=== PATIENT | female | born 1955 | race Caucasian/White ===

== ENCOUNTER 2020-05-18 12:55 | Outpatient (REF) | payer MEDICAID, SELFPAY ==
--- NOTE | 2020-05-18 13:04 | XR_ITS ---
EXAMINATION: XR KNEE, LEFT XR KNEE, BILATERAL CLINICAL INFORMATION: Left knee pain COMPARISON: None TECHNIQUE: AP standing view of both knees. 2 views of the left knee. FINDINGS: Left knee: No fracture or subluxation. Compartmental joint space narrowing at the patellofemoral compartment. Medial and lateral compartments are maintained. Tricompartmental marginal osteophytes are present. No joint effusion. The soft tissues are unremarkable. Right knee: No fracture or malalignment on this single view. Mild medial compartment joint space narrowing with marginal osteophytes of the medial and lateral compartments. IMPRESSION: Mild tricompartmental degenerative changes of the left knee, greatest at the patellofemoral compartment.
== END 2020-05-18 12:56 | disposition home or self-care (01) ==
LOC: HO.XRAY 12:55
PROVIDERS: PCP Nurse Practitioner Family; Referring Provider Nurse Practitioner Family; Visit Provider Orthopaedic Surgery
DX: M25.562 Pain in left knee (principal); M17.12 Unilateral primary osteoarthritis, left knee
CPT/HCPCS: 20610; 73560; 73565; 99214; J1100

== ENCOUNTER 2020-09-07 13:39 | Outpatient (REF) | payer MEDICAID, SELFPAY | END 2020-09-07 13:40 | disposition home or self-care (01) | LOC: HO.LAB 13:39 | PROVIDERS: Visit Provider Internal Medicine | DX: Z20.822 Contact with and (suspected) exposure to COVID-19 (principal) | CPT/HCPCS: 36415; C9803; U0003; U0005 ==

== ENCOUNTER 2020-09-26 15:14 | Outpatient (REF) | payer MEDICAID, SELFPAY | END 2020-09-26 15:15 | disposition home or self-care (01) | LOC: HO.LAB 15:14 | PROVIDERS: PCP Nurse Practitioner Family; Visit Provider Internal Medicine | DX: Z20.822 Contact with and (suspected) exposure to COVID-19 (principal) | CPT/HCPCS: 36415; C9803; U0003; U0005 ==

== ENCOUNTER 2021-01-23 09:24 | Outpatient (REF) | payer MEDICAID, SELFPAY ==
--- NOTE | ~2021-01-23 | CT_ITS ---
EXAMINATION: CT INTERNAL AUDITORY CANALS WITH CONTRAST CLINICAL INFORMATION: Left mastoid tenderness. Hard mass. COMPARISON: None available. TECHNIQUE: Contiguous axial imaging was performed from the skull base to vertex following the administration of 85 mL of Omnipaque [address] examination was performed using dose optimization techniques as appropriate, variously including the following: *Automated exposure control *Adjustment of mA and/or kV according to patient size (this includes techniques or standardized protocols for targeted exams where dose is matched to indication/reason for exam; i.e. extremities or head) *Use of iterative reconstruction technique Total DLP: 252 mGy-cm FINDINGS: There is arachnoid pitting within the greater sphenoid wings bilaterally, there is an intradiploic meningocele within the left sphenoid wing, there is an empty sella, and there are petrous apex cephaloceles bilaterally. These findings can be seen and should be correlated for clinical signs of pseudotumor cerebri/intracranial hypertension. Nonspecific periauricular lymph nodes bilaterally and left greater than right occipital chain lymph nodes. No discrete mass lesions nor focal fluid collections identified. Mastoid air cells and middle ear cavities remain well aerated. Imaged paranasal sinuses are clear. There is sigmoid deviation of the nasal septum. There is dural calcification intracranially. There are hypertrophic degenerative changes at the atlantodental interval. Birgit bullosa within the right middle turbinate. CT/CT internal auditory canals BI IMPRESSION: - There is arachnoid pitting within the greater sphenoid wings bilaterally, there is an intradiploic meningocele within the left sphenoid wing, there is an empty sella, and there are petrous apex cephaloceles bilaterally. These findings can be seen in and should be correlated for clinical signs of pseudotumor cerebri/intracranial hypertension. - Nonspecific periauricular lymph nodes bilaterally and left greater than right occipital chain lymph nodes. - No discrete mass lesions nor focal fluid collections identified.
[2021-01-23] MEDS: iohexoL 350 MG/ML 100 ML INFUS..BTL IV (12:11)
== END 2021-01-23 09:25 | disposition home or self-care (01) ==
LOC: HO.CT 09:24
PROVIDERS: PCP Nurse Practitioner Primary Care; Visit Provider Emergency Medicine
DX: H92.02 Otalgia, left ear (principal)
CPT/HCPCS: 70480; Q9967

== ENCOUNTER 2021-02-07 16:24 | Outpatient (REF) | payer MEDICAID, SELFPAY ==
--- NOTE | ~2021-02-07 | XR_ITS ---
EXAMINATION: XR SKULL CLINICAL INFORMATION: Hyperostosis of the skull. COMPARISON: CT of the internal auditory canal 01/23/2021. TECHNIQUE: 5 views of the skull FINDINGS: There is diffuse cortical thickening and sclerosis of the skull. A focal lesion is not seen. Differential would include Paget's disease, fibrous dysplasia, anemia, hypothyroidism, hyperparathyroidism, and metabolic bone disease such as hypercalcemia and fluorosis and certain medications such as Dilantin. No fracture, dislocation or focal bone lesion is seen. Visualized paranasal sinuses appear clear. XR/XR skull min 4V IMPRESSION: Diffuse skull thickening. Differential would include Paget's disease, fibrous dysplasia, anemia, hypothyroidism, hyperparathyroidism, metabolic bone disease, and certain medications.
== END 2021-02-07 16:25 | disposition home or self-care (01) ==
LOC: HO.XRAY 16:24
PROVIDERS: PCP Nurse Practitioner Family; Visit Provider Internal Medicine
DX: M85.2 Hyperostosis of skull (principal)
CPT/HCPCS: 70260

== ENCOUNTER 2021-02-16 14:36 | Outpatient (REF) | payer MEDICAID, SELFPAY | END 2021-02-16 14:37 | disposition home or self-care (01) | LOC: HO.LAB 14:36 | PROVIDERS: PCP Nurse Practitioner Family; Visit Provider Internal Medicine | DX: Z20.822 Contact with and (suspected) exposure to COVID-19 (principal) | CPT/HCPCS: C9803; U0003; U0005 ==

== ENCOUNTER 2021-02-19 08:16 | Outpatient (REF) | payer MEDICAID, SELFPAY ==
--- NOTE | ~2021-02-19 | CT_ITS ---
EXAMINATION: CT HEAD WITH CONTRAST CLINICAL INFORMATION: Headaches. Photophobia. COMPARISON: No relevant prior imaging. TECHNIQUE: Contiguous axial imaging was performed from the skull base to vertex following the administration of 100 mL of Omnipaque [address] examination was performed using dose optimization techniques as appropriate, variously including the following: *Automated exposure control *Adjustment of mA and/or kV according to patient size (this includes techniques or standardized protocols for targeted exams where dose is matched to indication/reason for exam; i.e. extremities or head) *Use of iterative reconstruction technique DLP: 1041 mGy-cm FINDINGS: There is no abnormal mass or enhancement within the intracranial compartment. No intracranial mass effect or midline shift. Lateral and third ventricles are normal. No hydrocephalus. There is an enlarged partially empty sella turcica. Extensive dural calcifications. Sotelo-white matter differentiation is grossly preserved and there is no evidence of acute territorial infarct. The calvarium and skull base are intact. Mastoid air cells and middle ear cavities are well aerated. No active paranasal sinus disease. CT/CT head/brain w con IMPRESSION: There is an enlarged partially empty sella turcica and extensive dural calcifications. Otherwise unremarkable CT scan of the head. No abnormal intracranial mass or enhancement.
[2021-02-19] MEDS: iohexoL 350 MG/ML 100 ML INFUS..BTL IV (10:00)
== END 2021-02-19 08:17 | disposition home or self-care (01) ==
LOC: HO.CT 08:16
PROVIDERS: PCP Nurse Practitioner Family; Visit Provider Internal Medicine
DX: Q75.9 Congenital malformation of skull and face bones, unspecified (principal)
CPT/HCPCS: 70460; Q9967

== ENCOUNTER 2021-05-09 10:05 | Outpatient (REF) | payer MEDICAID, SELFPAY ==
--- NOTE | ~2021-05-09 | US_ITS ---
EXAMINATION: US THYROID CLINICAL INFORMATION: History of thyroidectomy. COMPARISON: None TECHNIQUE: Linear transducer grayscale and color Doppler examination with attention to the region of the thyroid. FINDINGS: SIZE: Measurements of the thyroid lobes and nodules are given in sagittal, anteroposterior and transverse dimensions respectively. Right Thyroid Lobe: Surgically absent. Left Thyroid Lobe: Surgically absent. Isthmus: Surgically absent. No abnormal mass or fluid collection is seen within the former thyroid bed. NODES: In the right upper cervical region, a 2.1 x 0.6 x 1.4 cm reniform lymph node is seen showing good corticomedullary differentiation, no focal cortical thickening and a vascular hilum. In the mid right cervical region, 1.0 x 1 0.4 x 0.7 cm and 1.0 x 0.5 x 0.6 cm lymph nodes are seen showing good corticomedullary differentiation, no focal cortical thickening and a vascular zena. At the superior left cervical region, a 1.1 x 0.4 x 0.4 cm reniform lymph node is seen. At the mid left cervical region, a 1.2 x 0.6 x 0.5 cm lymph node is seen. These lymph nodes showed good corticomedullary differentiation, no focal cortical thickening and a vascular hilum. US/US thyroid IMPRESSION: 1. The thyroid is surgically absent. No abnormal mass or fluid collection is seen within the former thyroid bed. 2. Bilateral cervical lymph nodes are seen, the majority shotty and nonpathologically enlarged and 1 within the superior right cervical region enlarged, without focal cortical thickening and showing well-maintained corticomedullary differentiation. This is a nonspecific finding, which should be managed on a clinical basis. If clinically indicated, consider further evaluation with follow-up ultrasound imaging in 3-6 months to ensure stability/regression. ACR TI-RADS RECOMMENDATION REFERENCE: Ultrasound-guided fine-needle aspiration, followup ultrasound, no further follow up. * TR1 (0 point) and TR 2 (2 points): No FNA or follow up * TR3 (3 points): FNA if more than or equal to 2.5 cm in maximum dimension, followup ultrasound in 1, 3 and 5 years if 1.5 to 2.4 cm in maximum dimension. * TR4 (4-6 points): FNA if more than or equal to 1.5 cm in maximum dimension, followup ultrasound in 1, 2, 3 and 5 years if 1 to 1.4 cm in maximum dimension. * TR5 (more than or equal to 7 points): FNA if more than or equal to 1 cm in maximum dimension, followup ultrasound every year for 5 years if 0.5 to 0.9 cm in maximum dimension. * TR3, TR4 or TR5 nodules that are below the size threshold for follow up receive no follow up.
== END 2021-05-09 10:06 | disposition home or self-care (01) ==
LOC: HO.US 10:05
PROVIDERS: PCP Nurse Practitioner Primary Care; Visit Provider Nurse Practitioner Primary Care
DX: E89.0 Postprocedural hypothyroidism (principal); Z85.850 Personal history of malignant neoplasm of thyroid
CPT/HCPCS: 76536

== ENCOUNTER → 2021-06-08 14:08 | Outpatient (BNVA) | payer MEDICAID, SELFPAY | PROVIDERS: PCP Nurse Practitioner Primary Care; Referring Provider Nurse Practitioner Primary Care; Visit Provider Nurse Practitioner | DX: Z01.818 Encounter for other preprocedural examination (principal); K62.5 Hemorrhage of anus and rectum | CPT/HCPCS: 99202 ==

== ENCOUNTER 2021-06-11 13:18 | Outpatient (REF) | payer MEDICAID, SELFPAY ==
[2021-06-11 13:29] LABS: MANUAL DIFF FLAG NO
[2021-06-11 14:43] LABS: Basophils Absolute Auto 0.1 X10*3/uL (0.0-0.2); Basophils Percent Auto 0.4 % (0-2); Eosinophils Absolute Auto 0.2 X10*3/uL (0.0-0.4); Eosinophils Percent Auto 1.3 % (0-4); Hematocrit 43.4 % (37.0-47.0); Hemoglobin 14.2 g/dl (12.0-16.0); Imm Gran Abs Auto 0.06 X10*3/uL (0.00-0.03); Imm Gran Pct Auto 0.4 % (0.0-0.4); Lymphocytes Absolute Auto 4.3 X10*3/uL (1.2-4.9); Lymphocytes Percent Auto 28.2 % (20-40); Mean Corpuscular HGB Conc 32.7 g/dl (31.0-35.0); Mean Corpuscular Hemoglobin 31.5 pg (27.0-33.0); Mean Corpuscular Volume 96.2 fL (80.0-98.0); Mean Platelet Volume 10.6 fL (9.4-12.3); Monocytes Absolute Auto 0.9 X10*3/uL (0.1-1.2); Neutrophils Absolute Auto 9.6 x10*3/uL (2.0-8.3); Neutrophils Percent Auto 63.7 % (45-73); Platelet Count 369 X10*3/uL (160-400); Red Blood Count 4.51 X10*6/uL (4.20-5.50); Red Cell Distribution Width 13.6 % (11.0-16.0); White Blood Count 15.1 X10*3/uL (4.8-10.8)
[2021-06-11 15:10] LABS: Alanine Aminotransferase 13 U/L (0-31); Albumin Level 4.1 g/dL (3.5-5.0); Alkaline Phosphatase 77 U/L (39-117); Anion Gap 15 (12-20); Aspartate Amino Transferase 11 U/L (5-31); Bilirubin Total 0.3 mg/dL (0.0-1.0); Blood Urea Nitrogen 15 mg/dL (9-16); Calcium 9.3 mg/dL (8.4-10.2); Carbon Dioxide 25 mmol/L (22-29); Chloride 105 mmol/L (96-108); Estimated Glomerular Filt Rate > 60; Glucose Random 163 mg/dL (60-115); Potassium 4.5 mmol/L (3.3-5.1); Sodium 140 mmol/L (135-145); Total Protein 6.8 g/dL (6.5-8.0)
== END 2021-06-11 13:19 | disposition home or self-care (01) ==
LOC: HO.LAB 13:18
PROVIDERS: PCP Nurse Practitioner Primary Care; Visit Provider Nurse Practitioner
DX: K62.5 Hemorrhage of anus and rectum (principal)
CPT/HCPCS: 36415; 80053; 85025

== ENCOUNTER 2021-07-23 14:11 | Outpatient (REF) | payer MEDICAID, SELFPAY | END 2021-07-23 14:12 | disposition home or self-care (01) | LOC: HO.LAB 14:11 | PROVIDERS: Visit Provider Internal Medicine | DX: Z20.822 Contact with and (suspected) exposure to COVID-19 (principal) | CPT/HCPCS: C9803; U0003; U0005 ==

== ENCOUNTER 2021-09-05 12:31 | Day surgery (SDC) | payer MEDICAID, SELFPAY ==
[2021-08-31 10:04] VITALS: BMI 40.2
--- NOTE | 2021-09-04 11:51 | P.CONAN_ITS ---
Documented by User: Kaitlin Burris NP 09/04/21 11:52 HPI - Anesthesia Eval Consult details Narrative: 65yo F for Colonoscopy PMFSH Active Problems Active Problems: All Active Problems (Updated 08/31/21 @ 09:59 by Palak Moreira, RICARDO) Skull anomaly (Acute) Rectal bleeding (Acute) Osteoarthritis of left knee (Acute) Left knee pain (Acute) Past Medical History Medical History Anxiety and depression Elevated cholesterol GERD (gastroesophageal reflux disease) Hx of thyroid cancer Hypertension Left knee pain [place] on CPAP Osteoarthritis of left knee Prediabetes Family History Family History Mother Leukemia Diabetes Heart attack Father Esophageal adenocarcinoma Sister Breast cancer Brother Bone cancer Esophageal adenocarcinoma Family/Other Ovarian cancer Brother Prostate cancer Paternal Grandmother Melanoma Surgical History Surgical History History of back surgery History of colonoscopy History of endoscopy History of thyroidectomy Social History Social History Alcohol intake: current Alcohol intake frequency: holidays/special occasions only Patient Tobacco Use Status: Never used Tobacco Advance Directives: No Advance Directives Information Provided: Yes Meds Allergies Allergy/AdvReac Type Severity Reaction Status Date / Time No Known Allergies Allergy Mild NONE Verified 08/31/21 09:59 Home Medications Medication Instructions Recorded Confirmed Last Taken Type amlodipine 5 mg 5 mg PO DAILY 05/18/20 08/31/21 Unknown History tablet atorvastatin 20 40 mg PO DAILY 05/18/20 08/31/21 Unknown History mg tablet bupropion HCl 150 150 mg PO QAM 05/18/20 08/31/21 Unknown History mg 24 hr tablet, extended release cholecalciferol 50 mcg PO DAILY 05/18/20 08/31/21 Unknown History (vitamin D3) 50 mcg (2,000 unit) chewable tablet citalopram 10 mg 10 mg PO DAILY 05/18/20 08/31/21 Unknown History tablet (Celexa) docusate sodium 100 mg PO DAILY 05/18/20 08/31/21 Unknown History 100 mg capsule levothyroxine 137 137 mcg PO DAILY 05/18/20 08/31/21 Unknown History mcg tablet lisinopril 20 mg 20 mg PO DAILY 05/18/20 08/31/21 Unknown History tablet lorazepam 1 mg 1 mg PO DAILY 05/18/20 08/31/21 Unknown History tablet PRN sennosides 8.6 mg 8.6 mg PO DAILY 05/18/20 08/31/21 Unknown History tablet (Senna Lax) tizanidine 4 mg 4 mg PO BEDTIME 05/18/20 08/31/21 Unknown History capsule (Zanaflex) trazodone 100 mg 100 mg PO BID 05/18/20 08/31/21 Unknown History tablet metformin 500 mg 2 tab PO BID 02/07/21 08/31/21 Unknown History tablet,extended release 24 hr tramadol 50 mg 1 tab PO Q8H PRN 02/07/21 08/31/21 Unknown History tablet omeprazole 20 mg 1 tab PO QAM 08/31/21 08/31/21 Unknown History capsule,delayed release prazosin 1 mg 1 cap PO BEDTIME 08/31/21 08/31/21 Unknown History capsule Exam Exam Date and Time: September 04, 2021 1151 Height,Weight and Vital Signs: Height 5 ft 5 in Weight 109.769 kg Pertinent Lab Results Pertinent Lab Results: Laboratory Tests 06/11/21 06/11/21 13:27 13:27 WBC 15.1 H Hgb 14.2 Hct 43.4 Plt Count 369 Sodium 140 Potassium 4.5 Chloride 105 Carbon Dioxide 25 BUN 15 Creatinine 0.93 Assessment and Plan Assessment Anesthesia Assessment: Chart Reviewed Documented by User: Kyra Owen MD 09/05/21 12:58 [facility] Past Medical History Medical History Anxiety and depression Elevated cholesterol GERD (gastroesophageal reflux disease) Hx of thyroid cancer Hypertension Left knee pain [place] on CPAP Osteoarthritis of left knee Prediabetes Family History Family History Mother Leukemia Diabetes Heart attack Father Esophageal adenocarcinoma Sister Breast cancer Brother Bone cancer Esophageal adenocarcinoma Family/Other Ovarian cancer Brother Prostate cancer Paternal Grandmother Melanoma Surgical History Surgical History History of back surgery History of colonoscopy History of endoscopy History of thyroidectomy History of Problems with Anesthesia: No Social History Social History Alcohol intake: current Alcohol intake frequency: holidays/special occasions only Patient Tobacco Use Status: Never used Tobacco Advance Directives: No Advance Directives Information Provided: Yes Meds Allergies Allergy/AdvReac Type Severity Reaction Status Date / Time No Known Allergies Allergy Mild NONE Verified 08/31/21 09:59 Home Medications Medication Instructions Recorded Confirmed Last Taken Type amlodipine 5 mg 5 mg PO DAILY 05/18/20 08/31/21 Unknown History tablet atorvastatin 20 40 mg PO DAILY 05/18/20 08/31/21 Unknown History mg tablet bupropion HCl 150 150 mg PO QAM 05/18/20 08/31/21 Unknown History mg 24 hr tablet, extended release cholecalciferol 50 mcg PO DAILY 05/18/20 08/31/21 Unknown History (vitamin D3) 50 mcg (2,000 unit) chewable tablet citalopram 10 mg 10 mg PO DAILY 05/18/20 08/31/21 Unknown History tablet (Celexa) docusate sodium 100 mg PO DAILY 05/18/20 08/31/21 Unknown History 100 mg capsule levothyroxine 137 137 mcg PO DAILY 05/18/20 08/31/21 Unknown History mcg tablet lisinopril 20 mg 20 mg PO DAILY 05/18/20 08/31/21 Unknown History tablet lorazepam 1 mg 1 mg PO DAILY 05/18/20 08/31/21 Unknown History tablet PRN sennosides 8.6 mg 8.6 mg PO DAILY 05/18/20 08/31/21 Unknown History tablet (Senna Lax) tizanidine 4 mg 4 mg PO BEDTIME 05/18/20 08/31/21 Unknown History capsule (Zanaflex) trazodone 100 mg 100 mg PO BID 05/18/20 08/31/21 Unknown History tablet metformin 500 mg 2 tab PO BID 02/07/21 08/31/21 Unknown History tablet,extended release 24 hr tramadol 50 mg 1 tab PO Q8H PRN 02/07/21 08/31/21 Unknown History tablet omeprazole 20 mg 1 tab PO QAM 08/31/21 08/31/21 Unknown History capsule,delayed release prazosin 1 mg 1 cap PO BEDTIME 08/31/21 08/31/21 Unknown History capsule Exam Airway Mallampati Class: II TM Dist: >3cm Neck ROM: Full Loose/Missing/Broken Teeth: No Heart: RRR Lungs: CTA Assessment and Plan Assessment Anesthesia Assessment: Anesthesia Plan Discussed Final Anesthetic Review History of Problems with Anesthesia: No NPO: Yes ASA Class: III Final Preanesthetic Review: Meds/Allgs Chart Reviewed, Consent Obtained/Reviewed and Anes Risks/Benef Reviewed Patient Risk: Intermediate Procedure Risk: Low Anesthetic Plan Anesthetic Plan: MAC: Disposition: Standard PACU
--- NOTE | 2021-09-04 11:51 | HO.ANESPROP2 ---
Documented by User: Kaitlin Burris NP 09/04/21 11:52 HPI - Anesthesia Eval Consult details Narrative: 65yo F for Colonoscopy PMFSH Active Problems Active Problems: All Active Problems (Updated 08/31/21 @ 09:59 by Palak Moreira, RICARDO) Skull anomaly (Acute) Rectal bleeding (Acute) Osteoarthritis of left knee (Acute) Left knee pain (Acute) Past Medical History Medical History Anxiety and depression Elevated cholesterol GERD (gastroesophageal reflux disease) Hx of thyroid cancer Hypertension Left knee pain [place] on CPAP Osteoarthritis of left knee Prediabetes Family History Family History Mother Leukemia Diabetes Heart attack Father Esophageal adenocarcinoma Sister Breast cancer Brother Bone cancer Esophageal adenocarcinoma Family/Other Ovarian cancer Brother Prostate cancer Paternal Grandmother Melanoma Surgical History Surgical History History of back surgery History of colonoscopy History of endoscopy History of thyroidectomy Social History Social History Alcohol intake: current Alcohol intake frequency: holidays/special occasions only Patient Tobacco Use Status: Never used Tobacco Advance Directives: No Advance Directives Information Provided: Yes Meds Allergies Allergy/AdvReac Type Severity Reaction Status Date / Time No Known Allergies Allergy Mild NONE Verified 08/31/21 09:59 Home Medications Medication Instructions Recorded Confirmed Last Taken Type amlodipine 5 mg tablet 5 mg PO DAILY 05/18/20 08/31/21 Unknown History atorvastatin 20 mg tablet 40 mg PO DAILY 05/18/20 08/31/21 Unknown History bupropion HCl 150 mg 24 hr tablet, 150 mg PO QAM 05/18/20 08/31/21 Unknown History extended release cholecalciferol (vitamin D3) 50 50 mcg PO DAILY 05/18/20 08/31/21 Unknown History mcg (2,000 unit) chewable tablet citalopram 10 mg tablet (Celexa) 10 mg PO DAILY 05/18/20 08/31/21 Unknown History docusate sodium 100 mg capsule 100 mg PO DAILY 05/18/20 08/31/21 Unknown History levothyroxine 137 mcg tablet 137 mcg PO DAILY 05/18/20 08/31/21 Unknown History lisinopril 20 mg tablet 20 mg PO DAILY 05/18/20 08/31/21 Unknown History lorazepam 1 mg tablet 1 mg PO DAILY PRN 05/18/20 08/31/21 Unknown History sennosides 8.6 mg tablet (Senna 8.6 mg PO DAILY 05/18/20 08/31/21 Unknown History Lax) tizanidine 4 mg capsule (Zanaflex) 4 mg PO BEDTIME 05/18/20 08/31/21 Unknown History trazodone 100 mg tablet 100 mg PO BID 05/18/20 08/31/21 Unknown History metformin 500 mg tablet,extended 2 tab PO BID 02/07/21 08/31/21 Unknown History release 24 hr tramadol 50 mg tablet 1 tab PO Q8H PRN 02/07/21 08/31/21 Unknown History omeprazole 20 mg capsule,delayed 1 tab PO QAM 08/31/21 08/31/21 Unknown History release prazosin 1 mg capsule 1 cap PO BEDTIME 08/31/21 08/31/21 Unknown History Exam Exam Date and Time: September 04, 2021 1151 Height,Weight and Vital Signs: Height 5 ft 5 in Weight 109.769 kg Pertinent Lab Results Pertinent Lab Results: Laboratory Tests 06/11/21 06/11/21 13:27 13:27 WBC 15.1 H Hgb 14.2 Hct 43.4 Plt Count 369 Sodium 140 Potassium 4.5 Chloride 105 Carbon Dioxide 25 BUN 15 Creatinine 0.93 Assessment and Plan Assessment Anesthesia Assessment: Chart Reviewed Documented by User: Kyra Owen MD 09/05/21 12:58 [facility] Past Medical History Medical History Anxiety and depression Elevated cholesterol GERD (gastroesophageal reflux disease) Hx of thyroid cancer Hypertension Left knee pain [place] on CPAP Osteoarthritis of left knee Prediabetes Family History Family History Mother Leukemia Diabetes Heart attack Father Esophageal adenocarcinoma Sister Breast cancer Brother Bone cancer Esophageal adenocarcinoma Family/Other Ovarian cancer Brother Prostate cancer Paternal Grandmother Melanoma Surgical History Surgical History History of back surgery History of colonoscopy History of endoscopy History of thyroidectomy History of Problems with Anesthesia: No Social History Social History Alcohol intake: current Alcohol intake frequency: holidays/special occasions only Patient Tobacco Use Status: Never used Tobacco Advance Directives: No Advance Directives Information Provided: Yes Meds Allergies Allergy/AdvReac Type Severity Reaction Status Date / Time No Known Allergies Allergy Mild NONE Verified 08/31/21 09:59 Home Medications Medication Instructions Recorded Confirmed Last Taken Type amlodipine 5 mg tablet 5 mg PO DAILY 05/18/20 08/31/21 Unknown History atorvastatin 20 mg tablet 40 mg PO DAILY 05/18/20 08/31/21 Unknown History bupropion HCl 150 mg 24 hr tablet, 150 mg PO QAM 05/18/20 08/31/21 Unknown History extended release cholecalciferol (vitamin D3) 50 50 mcg PO DAILY 05/18/20 08/31/21 Unknown History mcg (2,000 unit) chewable tablet citalopram 10 mg tablet (Celexa) 10 mg PO DAILY 05/18/20 08/31/21 Unknown History docusate sodium 100 mg capsule 100 mg PO DAILY 05/18/20 08/31/21 Unknown History levothyroxine 137 mcg tablet 137 mcg PO DAILY 05/18/20 08/31/21 Unknown History lisinopril 20 mg tablet 20 mg PO DAILY 05/18/20 08/31/21 Unknown History lorazepam 1 mg tablet 1 mg PO DAILY PRN 05/18/20 08/31/21 Unknown History sennosides 8.6 mg tablet (Senna 8.6 mg PO DAILY 05/18/20 08/31/21 Unknown History Lax) tizanidine 4 mg capsule (Zanaflex) 4 mg PO BEDTIME 05/18/20 08/31/21 Unknown History trazodone 100 mg tablet 100 mg PO BID 05/18/20 08/31/21 Unknown History metformin 500 mg tablet,extended 2 tab PO BID 02/07/21 08/31/21 Unknown History release 24 hr tramadol 50 mg tablet 1 tab PO Q8H PRN 02/07/21 08/31/21 Unknown History omeprazole 20 mg capsule,delayed 1 tab PO QAM 08/31/21 08/31/21 Unknown History release prazosin 1 mg capsule 1 cap PO BEDTIME 08/31/21 08/31/21 Unknown History Exam Airway Mallampati Class: II TM Dist: >3cm Neck ROM: Full Loose/Missing/Broken Teeth: No Heart: RRR Lungs: CTA Assessment and Plan Assessment Anesthesia Assessment: Anesthesia Plan Discussed Final Anesthetic Review History of Problems with Anesthesia: No NPO: Yes ASA Class: III Final Preanesthetic Review: Meds/Allgs Chart Reviewed, Consent Obtained/Reviewed and Anes Risks/Benef Reviewed Patient Risk: Intermediate Procedure Risk: Low Anesthetic Plan Anesthetic Plan: MAC: Disposition: Standard PACU
--- NOTE | 2021-09-05 12:47 | MHC.SHP ---
Pre-Procedural Eval Section A Date of Service: 09/05/21 Section B Chief Complaint: rectal bleeding Relevant Family History (Specify if Yes): No Relevant Social History: None Present Medications: see Short Stay Collaborative assessment Medical History: Significant History (Anxiety and depression Elevated cholesterol GERD (gastroesophageal reflux disease) Hx of thyroid cancer Hypertension Left knee pain [place] on CPAP Osteoarthritis of left knee Prediabetes) History of Previous Operations: Relevant previous surgery/procedure and date(s) (History of back surgery History of colonoscopy History of endoscopy History of thyroidectomy) Allergies: Allergies Allergy/AdvReac Type Severity Reaction Status Date / Time No Known Allergies Allergy Mild NONE Verified 08/31/21 09:59 Review of Systems Sugical H&P ROS: Negative: Constitution, Cardiovascular, Respiratory, Neurological, Psychiatric, Hem-Onc, Allergic/Immunologic, Gastrointestinal, Genitourinary, Musculoskeletal, Integumentary, Endocrine and Eyes/Ears/Nose/Throat Exam Surgical H&P Exam: Normal: HEENT, Normal: Heart, Normal: Lungs, Normal: Extremities, Normal: Abdomen, Normal: Skin and Normal: Neurological Plan Diagnosis/Plan: Unchanged I have reviewed the history and physical and performed a pertinent physical examination on my patient. No changes have occurred unless specified.
[2021-09-05 12:57] VITALS: BMI 40.7
[2021-09-05 13:11] VITALS: BP 154/90; PULSE 90; RESP 18; TEMP 36.2; O2SAT 98
[2021-09-05] MEDS: Lactated Ringers 1,000 ML 100 ML IVCONT (13:30)
[2021-09-05 13:43] LABS: Glucose, Whole Blood 123 mg/dL (60-115)
--- NOTE | 2021-09-05 13:45 | PM.OP ---
Brief Operative Note Date of Service: 09/05/21 Pre-op diagnosis: rectal bleeding Post-op diagnosis: same Procedure: see op note Surgeon: Arthur Alexander MD Anesthesia: MAC Was an Admitting Clerk used for this Procedure?: No Estimated blood loss (mL): 0 Condition: stable Disposition: PACU
--- NOTE | 2021-09-05 13:45 | W.PM.OPN ---
Operative Note Operative Note Date of Service: 09/05/21 Narrative: Operative Information Procedure Description: Colonoscopy COLONOSCOPY Instrument: Olympus variable stiffness adult scope 190L Colonoscopy Monitoring: Vital signs and clinical assessment, continuous EKG monitoring, Pulse oximetry, Carbon Dioxide monitoring and blood pressure monitoring were done throughout the procedure. Colon withdrawal time was 21 minutes. Procedure: The patient was placed in the left lateral decubitis position and pre-procedure medications were administered. After a digital rectal examination of the ano-rectum, the video colonoscope was inserted into the rectum and advanced through the colon to the cecum/TI. The colonoscope was slowly withdrawn in a retrograde panoramic fashion and the colon mucosa was carefully examined including a retroflexed view of the rectum. Findings and interventions are described below. Procedure Difficulty:moderate, pressure applied due to looping Findings: Terminal Ileum-normal Cecum: x 2 sessile polyps 5-6 mm removed with forceps Ascending Colon: normal Transverse Colon - x 2 sessile polyps, one measured 8 mm and the other-12-13 mm removed with cold snare Descending Colon:normal Sigmoid Colon: moderate diverticulosis Rectum: Retroflexion with small to medium sized internal hemorrhoids, grade I Anorectum - normal Colon preparation: [place] Bowel Preparation Scale Right colon; 1 Transverse colon: 1 Left colon; 2 (0 = Unprepared colon segment with mucosa not seen due to solid stool that cannot be cleared. 1 = Portion of mucosa of the colon segment seen, but other areas of the colon segment not well seen due to staining, residual stool and/or opaque liquid. 2 = Minor amount of residual staining, small fragments of stool and/or opaque liquid, but mucosa of colon segment seen well. 3 = Entire mucosa of colon segment seen well with no residual staining, small fragments of stool or opaque liquid) Impression and Post Procedure Diagnosis: polyps internal hemorrhoids diverticular disease Plan: High fiber diet leaflet Avoid straining at stool, epsom salts and sitz bath, anusol supps or cream Repeat Colonoscopy in 6-12 months or earlier if clinically indicated, next time compliance with prep, there was thick debirs and nut like material Above findings were reviewed with the patient and relevant handouts were provided if indicated.
[2021-09-05 14:35] VITALS: BP 116/72; PULSE 69; RESP 16; TEMP 36.2; O2SAT 99
[2021-09-05 15:00] VITALS: BP 140/81; PULSE 74; RESP 16; TEMP 36.1; O2SAT 99
== END 2021-09-05 15:40 | disposition home or self-care (01) ==
PROVIDERS: PCP Nurse Practitioner Primary Care; Visit Provider Internal Medicine Gastroenterology
PROC: 0DJD8ZZ Inspection of Lower Intestinal Tract, Via Natural or Artificial Opening Endoscopic (ICD-10-PCS; CPT 45378; principal; 2021-09-05 14:00)
DX: K62.5 Hemorrhage of anus and rectum (principal); D12.0 Benign neoplasm of cecum; D12.3 Benign neoplasm of transverse colon; K57.30 Diverticulosis of large intestine without perforation or abscess without bleeding; K64.0 First degree hemorrhoids; K59.04 Chronic idiopathic constipation; R73.03 Prediabetes; I10 Essential (primary) hypertension; Z85.850 Personal history of malignant neoplasm of thyroid; G47.33 Obstructive sleep apnea (adult) (pediatric); Z99.89 Dependence on other enabling machines and devices
CPT/HCPCS: 45385; 45380; 82947; 88305

== ENCOUNTER 2021-10-02 14:54 | Outpatient (REF) | payer MEDICAID, SELFPAY ==
[2021-10-02 16:26] LABS: Basophils Absolute Auto 0.1 X10*3/uL (0.0-0.2); Basophils Percent Auto 0.5 % (0-2); Eosinophils Absolute Auto 0.2 X10*3/uL (0.0-0.4); Eosinophils Percent Auto 1.8 % (0-4); Hematocrit 41.2 % (37.0-47.0); Hemoglobin 13.5 g/dl (12.0-16.0); Imm Gran Abs Auto 0.03 X10*3/uL (0.00-0.03); Imm Gran Pct Auto 0.2 % (0.0-0.4); Lymphocytes Absolute Auto 5.1 X10*3/uL (1.2-4.9); Lymphocytes Percent Auto 39.2 % (20-40); MANUAL DIFF FLAG SCAN; Mean Corpuscular HGB Conc 32.8 g/dl (31.0-35.0); Mean Corpuscular Hemoglobin 31.3 pg (27.0-33.0); Mean Corpuscular Volume 95.4 fL (80.0-98.0); Mean Platelet Volume 10.1 fL (9.4-12.3); Monocytes Absolute Auto 0.8 X10*3/uL (0.1-1.2); Monocytes Percent Auto 5.9 % (2-11); Neutrophils Absolute Auto 6.8 x10*3/uL (2.0-8.3); Neutrophils Percent Auto 52.4 % (45-73); Platelet Count 357 X10*3/uL (160-400); Red Blood Count 4.32 X10*6/uL (4.20-5.50); Red Cell Distribution Width 13.3 % (11.0-16.0); SCAN SMEAR FLAG 1
[2021-10-02 16:34] LABS: C Reactive Protein 0.45 mg/dL (< or = 0.50)
[2021-10-02 16:43] LABS: SLIDE REVIEW VERIFIED
[2021-10-06 13:26] LABS: Transglutaminase Ab IgG <1.0 U/mL; Transglutaminase IgA 11.7 U/mL
== END 2021-10-02 14:55 | disposition home or self-care (01) ==
LOC: HO.LAB 14:54
PROVIDERS: PCP Nurse Practitioner Primary Care; Referring Provider Nurse Practitioner Primary Care; Visit Provider Nurse Practitioner
DX: K58.0 Irritable bowel syndrome with diarrhea (principal); K62.5 Hemorrhage of anus and rectum; D12.6 Benign neoplasm of colon, unspecified
CPT/HCPCS: 36415; 85025; 86140; 86364; 99212

== ENCOUNTER 2021-10-04 12:12 | Outpatient (REF) | payer MEDICAID, SELFPAY ==
[2021-10-04 13:47] LABS: CDiff Gene PCR NEGATIVE (Negative)
== END 2021-10-04 12:13 | disposition home or self-care (01) ==
LOC: HO.LNP 12:12
PROVIDERS: Visit Provider Nurse Practitioner
DX: K58.0 Irritable bowel syndrome with diarrhea (principal)
CPT/HCPCS: 87045; 87046; 87493

== ENCOUNTER → 2021-11-02 11:53 | Outpatient (BNVA) | payer MEDICAID, SELFPAY | PROVIDERS: PCP Nurse Practitioner Primary Care; Referring Provider Nurse Practitioner Primary Care; Visit Provider Nurse Practitioner | DX: K58.0 Irritable bowel syndrome with diarrhea (principal); K62.5 Hemorrhage of anus and rectum; K21.9 Gastro-esophageal reflux disease without esophagitis; Z86.010 Personal history of colon polyps; Z98.890 Other specified postprocedural states | CPT/HCPCS: 99212 ==

== ENCOUNTER 2022-01-13 11:13 | Emergency (ER) | payer MEDICAID, SELFPAY ==
--- NOTE | ~2022-01-13 | XR_ITS ---
EXAMINATION: XR chest 1V CLINICAL INFORMATION: Reason for Exam sob COMPARISON: None TECHNIQUE: XR chest 1V Tubes and lines: None Lungs and pleura: Both lungs are clear. Heart and mediastinum: The mediastinum is within normal limits.. Bones/soft tissue: Skeletal structures included are normal for patient's age. XR/XR chest 1V IMPRESSION: No radiographic evidence of acute cardiopulmonary disease.
[2022-01-13 11:17] VITALS: BP 147/80; PULSE 90; RESP 18; TEMP 35.6; O2SAT 98; BMI 44.8
[2022-01-13 11:30] LABS: Glucose, Whole Blood 155 mg/dL (60-115)
[2022-01-13 11:32] LABS: MANUAL DIFF FLAG NO
[2022-01-13 11:46] LABS: Basophils Absolute Auto 0.1 X10*3/uL (0.0-0.2); Basophils Percent Auto 0.4 % (0-2); Eosinophils Absolute Auto 0.2 X10*3/uL (0.0-0.4); Eosinophils Percent Auto 1.7 % (0-4); Hematocrit 40.9 % (37.0-47.0); Hemoglobin 13.6 g/dl (12.0-16.0); Imm Gran Abs Auto 0.05 X10*3/uL (0.00-0.03); Imm Gran Pct Auto 0.4 % (0.0-0.4); Lymphocytes Absolute Auto 3.1 X10*3/uL (1.2-4.9); Lymphocytes Percent Auto 27.2 % (20-40); Mean Corpuscular HGB Conc 33.3 g/dl (31.0-35.0); Mean Corpuscular Volume 93.2 fL (80.0-98.0); Mean Platelet Volume 10.3 fL (9.4-12.3); Monocytes Absolute Auto 0.6 X10*3/uL (0.1-1.2); Monocytes Percent Auto 5.5 % (2-11); Neutrophils Absolute Auto 7.4 x10*3/uL (2.0-8.3); Neutrophils Percent Auto 64.8 % (45-73); Platelet Count 348 X10*3/uL (160-400); Red Blood Count 4.39 X10*6/uL (4.20-5.50); White Blood Count 11.5 X10*3/uL (4.8-10.8)
[2022-01-13 11:49] LABS: COVID-19 Test Negative (Negative); IDNOW Serial# 16C4AD1C
[2022-01-13 11:55] LABS: Anion Gap 14 (12-20); Blood Urea Nitrogen 12 mg/dL (9-16); Carbon Dioxide 26 mmol/L (22-29); Chloride 104 mmol/L (96-108); Creatinine Clr Calc Pharmacy 71.1; Estimated Glomerular Filt Rate 60; Glucose Random 173 mg/dL (60-115); Potassium 3.9 mmol/L (3.3-5.1); Sodium 140 mmol/L (135-145)
--- NOTE | 2022-01-13 13:59 | ED.GENADULT ---
HPI - General Adult General Chief complaint: General Medical Stated complaint: hyperglycemia Time Seen by Provider: 01/13/22 13:49 Source: patient Mode of arrival: ambulatory History of Present Illness HPI narrative: 66-year-old female with a past medical history of anxiety, depression, HLD, GERD, HTN, [place] on CPAP, diabetes on Metformin, presenting to ED complaining of hyperglycemia at home over the past week with associated SOB, generalized fatigue/weakness, chills, lethargy. Family reports compliance with medications. Also reports headache and lightheadedness. Denies fever, cough, chest pain, abdominal pain, vomiting, diarrhea, recent travel, sick contacts Onset (ago): week(s) Related Data Home Medications Medication Instructions Recorded Confirmed amlodipine 5 mg tablet 5 mg PO DAILY 05/18/20 08/31/21 atorvastatin 20 mg tablet 40 mg PO DAILY 05/18/20 08/31/21 bupropion HCl 150 mg 24 hr tablet, 150 mg PO QAM 05/18/20 08/31/21 extended release cholecalciferol (vitamin D3) 50 50 mcg PO DAILY 05/18/20 08/31/21 mcg (2,000 unit) chewable tablet citalopram 10 mg tablet (Celexa) 10 mg PO DAILY 05/18/20 08/31/21 docusate sodium 100 mg capsule 100 mg PO DAILY 05/18/20 08/31/21 levothyroxine 137 mcg tablet 137 mcg PO DAILY 05/18/20 08/31/21 lisinopril 20 mg tablet 20 mg PO DAILY 05/18/20 08/31/21 lorazepam 1 mg tablet 1 mg PO DAILY PRN Anxiety 05/18/20 08/31/21 sennosides 8.6 mg tablet (Senna 8.6 mg PO DAILY 05/18/20 08/31/21 Lax) tizanidine 4 mg capsule (Zanaflex) 4 mg PO BEDTIME 05/18/20 08/31/21 trazodone 100 mg tablet 100 mg PO BID 05/18/20 08/31/21 metformin 500 mg tablet,extended 2 tab PO BID 02/07/21 08/31/21 release 24 hr tramadol 50 mg tablet 1 tab PO Q8H PRN Pain 02/07/21 08/31/21 prazosin 1 mg capsule 1 cap PO BEDTIME 08/31/21 08/31/21 Previous Rx's Medication Instructions Recorded dicyclomine 10 mg capsule 10 mg PO QID #120 caps 10/02/21 bisacodyl 5 mg tablet,delayed 10 mg PO ONCE 1 day #2 tabs 10/25/21 release (Dulcolax (bisacodyl)) polyethylene glycol 3350 17 238 g PO ONCE 1 day #238 grams 10/25/21 gram/dose oral powder (Miralax) bisacodyl 5 mg tablet,delayed 10 mg PO ONCE 1 day #2 tabs 10/26/21 release (Dulcolax (bisacodyl)) omeprazole 20 mg capsule,delayed 20 mg PO DAILY 30 days #30 caps 11/02/21 release peg 3350-electrolytes 236 240 ml PO Q10M 1 day #4,000 mL 11/02/21 gram-22.74 gram-6.74 gram-5.86 gram solution (Golytely) Allergies Allergy/AdvReac Type Severity Reaction Status Date / Time No Known Allergies Allergy Mild NONE Verified 11/02/21 12:49 Review of Systems Review of Systems: Constitutional: No Fever, + Chills, No Night Sweats, + Fatigue, + Malaise ENT/Mouth:No Ear Pain, No Nasal Congestion, No sore throat, No Rhinorrhea, No Swallowing Difficulty Eyes: No Eye Pain, No Swelling, No Redness Cardiovascular: No Chest Pain, + SOB, No Dyspnea on Exertion, No Orthopnea, No Edema, No Palpitations Respiratory: No Cough, No Sputum, No Dyspnea Gastrointestinal: + Nausea, No Vomiting, No Diarrhea, No Constipation, No Abdominal pain Genitourinary: No Dysuria, No Urinary Frequency, No Hematuria, No Urinary Incontinence/retention, No Flank Pain Musculoskeletal: No joint pain, No Myalgias, No Joint Swelling Skin: No Skin Lesions, No rash Neuro: + Weakness, No Numbness, No Loss of Consciousness, + lightheaded, No Headache Endocrine: No Polyuria, No Polydipsia Yes all other systems are reviewed and are negative Neurologic: Denies Abnormal speech present [facility] Past Medical History Attestation statement: The following information was validated with the patient. Medical History Anxiety and depression Elevated cholesterol GERD (gastroesophageal reflux disease) Hx of thyroid cancer Hypertension Left knee pain [place] on CPAP Osteoarthritis of left knee Prediabetes Surgical History History of back surgery History of colonoscopy History of endoscopy History of thyroidectomy Family History Family History Mother Leukemia Diabetes Heart attack Father Esophageal adenocarcinoma Sister Breast cancer Brother Bone cancer Esophageal adenocarcinoma Family/Other Ovarian cancer Brother Prostate cancer Paternal Grandmother Melanoma Social History Social History Alcohol intake: current Alcohol intake frequency: holidays/special occasions only Patient Tobacco Use Status: Never used Tobacco Advance Directives: No Advance Directives Information Provided: No Physical Exam ED Vital Signs: Vital Signs - 24 hr 01/13/22 11:17 01/13/22 14:08 01/13/22 14:15 Temperature 96.1 F L Pulse Rate 90 80 77 Respiratory Rate 18 Blood Pressure 147/80 H 146/78 H 155/82 H Pulse Oximetry 98 Oxygen Delivery Method Room Air 01/13/22 14:17 01/13/22 15:51 Temperature 98.1 F Pulse Rate 86 80 Respiratory Rate 20 Blood Pressure 155/83 H 142/68 H Pulse Oximetry 98 Oxygen Delivery Method Room Air BMI result Body Mass Index 44.8 Const General: cooperative, healthy appearing, no acute distress, alert and awake Orientation/consciousness: patient oriented x3 Limitations: no limitations HENMT Head: Yes normal to inspection and Yes atraumatic Ears: hearing grossly normal bilaterally General nose exam: Normal external nose present Face and sinus: Yes normal facial exam Mouth: Normal oral and palatal mucosa present Throat: Yes posterior oropharynx normal Eyes General: appearance normal, both eyes and all related structures EOM: EOMs intact bilaterally Neck Neck: Yes normal visual inspection and Yes no meningeal signs Resp Effort & Inspection: normal respiratory effort and no respiratory distress Auscultation: clear to auscultation bilaterally, no rales, no rhonchi and no wheezes Cardio Rate: regular rate Heart sounds: S1 normal heart sound present and S2 normal heart sound present GI Inspection: Yes normal to inspection Palpation (GI): Soft to palpation, nontender, no guarding and not rigid General: Yes no CVA tenderness Back/Spine/Pelvis Back: no CVA tenderness Skin Rashes: no rashes Wounds: no wounds Neuro General: patient oriented x3, gait normal, tone normal, moves all extremities, no meningeal signs, no focal motor deficits and CN's II-XI intact bilaterally Cranial nerves: Yes CN's II-XII intact bilaterally Cognition (Neuro): normal cognition Speech: No Abnormal speech present Gait exam (Neuro): Normal gait present Motor exam (neuro): 5/5 motor strength present throughout Extrem General: Yes normal to inspection and Yes no pedal edema Course Course Course Narrative: -1441--mild leukocytosis of 11.5, glucose 173, no anion gap, labs otherwise unremarkable -troponin negative. COVID-19 negative -influenza negative XR chest 1V IMPRESSION: No radiographic evidence of acute cardiopulmonary disease. -orthostatic vital signs negative -1630--UA not infected. Results discussed with patient and family at bedside including worrisome signs and symptoms and strict return precautions and close follow-up with PCP. Medical Decision Making MDM Narrative Medical decision making narrative: 66-year-old female with a past medical history of anxiety, depression, HLD, GERD, HTN, [place] on CPAP, diabetes on Metformin, presenting to ED complaining of hyperglycemia at home over the past week with associated SOB, generalized fatigue/weakness, chills, lethargy. On exam vital signs stable, NAD, nontoxic appearing, no focal neuro deficits, abdomen soft/nontender. Concern for hyperglycemia vs DKA vs metabolic/infectious etiologies vs viral illness Plan: EKG, labs, CXR, UA, COVID-19/influenza testing, orthostatics, re-evaluate Medical Records Medical records reviewed: Yes I reviewed the patient's medical records. Lab Data Lab results reviewed: Yes I reviewed the patient's lab results. Result diagrams: 01/13/22 11:27 01/13/22 11:27 Labs: Lab Results 01/13/22 01/13/22 01/13/22 Range/Units 11:19 11:27 11:27 WBC 11.5 H (4.8-10.8) X10*3/uL RBC 4.39 (4.20-5.50) X10*6/uL Hgb 13.6 (12.0-16.0) g/dl Hct 40.9 (37.0-47.0) % MCV 93.2 (80.0-98.0) fL MCH 31.0 (27.0-33.0) pg MCHC 33.3 (31.0-35.0) g/dl RDW 14.0 (11.0-16.0) % Plt Count 348 (160-400) X10*3/uL MPV 10.3 (9.4-12.3) fL Immature Gran % (Auto) 0.4 (0.0-0.4) % Neut % (Auto) 64.8 (45-73) % Lymph % (Auto) 27.2 (20-40) % Gibson % (Auto) 5.5 (2-11) % Eos % (Auto) 1.7 (0-4) % Baso % (Auto) 0.4 (0-2) % Lymph # (Auto) 3.1 (1.2-4.9) X10*3/uL Gibson # (Auto) 0.6 (0.1-1.2) X10*3/uL Eos # (Auto) 0.2 (0.0-0.4) X10*3/uL Baso # (Auto) 0.1 (0.0-0.2) X10*3/uL Abs Immat Gran (auto) 0.05 H (0.00-0.03) X10*3/uL Absolute Neuts (auto) 7.4 (2.0-8.3) x10*3/uL Absolute Nucleated RBC 0.000 (0.0-0.012) X10*3/uL Nucleated RBC % (auto) 0.0 (0.0-0.2) /100WBC Sodium 140 (135-145) mmol/L Potassium 3.9 (3.3-5.1) mmol/L Chloride 104 (96-108) mmol/L Carbon Dioxide 26 (22-29) mmol/L Anion Gap 14 (12-20) BUN 12 (9-16) mg/dL Creatinine 0.94 (0.5-1.4) mg/dL Estim Creat Clear Calc 71.1 Estimated GFR 60 POC Glucose 155 H (60-115) mg/dL Random Glucose 173 H (60-115) mg/dL Calcium 9.0 (8.4-10.2) mg/dL Magnesium 1.8 (1.6-2.6) mg/dL Total Bilirubin 0.6 (0.0-1.0) mg/dL Direct Bilirubin 0.2 (0.0-0.5) mg/dL AST 14 (5-31) U/L ALT 15 (0-31) U/L Alkaline Phosphatase 77 (39-117) U/L Troponin I High Sens (<3.5-17.0) ng/L Total Protein 6.7 (6.5-8.0) g/dL Albumin 3.9 (3.5-5.0) g/dL Urine Color Urine Appearance Urine pH (5.0-8.0) Ur Specific Gwynn (1.005-1.025) Urine Protein (NEG-TRACE) MG/DL Urine Glucose (UA) (NEG) MG/DL Urine Ketones (NEG) MG/DL Urine Blood (NEG) Urine Nitrite (NEG) Ur Leukocyte Esterase (NEG) Urine RBC (0) /HPF Urine WBC (0-4) /HPF Ur Squamous Epith Cells /LPF Amorphous Sediment /LPF Urine Bacteria /LPF COVID-19 (KARLY) (Negative) COVID-19 Clin Com Influenza Type A (PREET) (Negative) Influenza Type B (PREET) (Negative) Influenza A & B Note 01/13/22 01/13/22 01/13/22 Range/Units 11:27 11:27 14:22 WBC (4.8-10.8) X10*3/uL RBC (4.20-5.50) X10*6/uL Hgb (12.0-16.0) g/dl Hct (37.0-47.0) % MCV (80.0-98.0) fL MCH (27.0-33.0) pg MCHC (31.0-35.0) g/dl RDW (11.0-16.0) % Plt Count (160-400) X10*3/uL MPV (9.4-12.3) fL Immature Gran % (Auto) (0.0-0.4) % Neut % (Auto) (45-73) % Lymph % (Auto) (20-40) % Gibson % (Auto) (2-11) % Eos % (Auto) (0-4) % Baso % (Auto) (0-2) % Lymph # (Auto) (1.2-4.9) X10*3/uL Gibson # (Auto) (0.1-1.2) X10*3/uL Eos # (Auto) (0.0-0.4) X10*3/uL Baso # (Auto) (0.0-0.2) X10*3/uL Abs Immat Gran (auto) (0.00-0.03) X10*3/uL Absolute Neuts (auto) (2.0-8.3) x10*3/uL Absolute Nucleated RBC (0.0-0.012) X10*3/uL Nucleated RBC % (auto) (0.0-0.2) /100WBC Sodium (135-145) mmol/L Potassium (3.3-5.1) mmol/L Chloride (96-108) mmol/L Carbon Dioxide (22-29) mmol/L Anion Gap (12-20) BUN (9-16) mg/dL Creatinine (0.5-1.4) mg/dL Estim Creat Clear Calc Estimated GFR POC Glucose (60-115) mg/dL Random Glucose (60-115) mg/dL Calcium (8.4-10.2) mg/dL Magnesium (1.6-2.6) mg/dL Total Bilirubin (0.0-1.0) mg/dL Direct Bilirubin (0.0-0.5) mg/dL AST (5-31) U/L ALT (0-31) U/L Alkaline Phosphatase (39-117) U/L Troponin I High Sens < 3.5 (<3.5-17.0) ng/L Total Protein (6.5-8.0) g/dL Albumin (3.5-5.0) g/dL Urine Color Urine Appearance Urine pH (5.0-8.0) Ur Specific Gwynn (1.005-1.025) Urine Protein (NEG-TRACE) MG/DL Urine Glucose (UA) (NEG) MG/DL Urine Ketones (NEG) MG/DL Urine Blood (NEG) Urine Nitrite (NEG) Ur Leukocyte Esterase (NEG) Urine RBC (0) /HPF Urine WBC (0-4) /HPF Ur Squamous Epith Cells /LPF Amorphous Sediment /LPF Urine Bacteria /LPF COVID-19 (KARLY) Negative (Negative) COVID-19 Clin Com See Note Influenza Type A (PREET) Negative (Negative) Influenza Type B (PREET) Negative (Negative) Influenza A & B Note SEE NOTE 01/13/22 Range/Units 16:02 WBC (4.8-10.8) X10*3/uL RBC (4.20-5.50) X10*6/uL Hgb (12.0-16.0) g/dl Hct (37.0-47.0) % MCV (80.0-98.0) fL MCH (27.0-33.0) pg MCHC (31.0-35.0) g/dl RDW (11.0-16.0) % Plt Count (160-400) X10*3/uL MPV (9.4-12.3) fL Immature Gran % (Auto) (0.0-0.4) % Neut % (Auto) (45-73) % Lymph % (Auto) (20-40) % Gibson % (Auto) (2-11) % Eos % (Auto) (0-4) % Baso % (Auto) (0-2) % Lymph # (Auto) (1.2-4.9) X10*3/uL Gibson # (Auto) (0.1-1.2) X10*3/uL Eos # (Auto) (0.0-0.4) X10*3/uL Baso # (Auto) (0.0-0.2) X10*3/uL Abs Immat Gran (auto) (0.00-0.03) X10*3/uL Absolute Neuts (auto) (2.0-8.3) x10*3/uL Absolute Nucleated RBC (0.0-0.012) X10*3/uL Nucleated RBC % (auto) (0.0-0.2) /100WBC Sodium (135-145) mmol/L Potassium (3.3-5.1) mmol/L Chloride (96-108) mmol/L Carbon Dioxide (22-29) mmol/L Anion Gap (12-20) BUN (9-16) mg/dL Creatinine (0.5-1.4) mg/dL Estim Creat Clear Calc Estimated GFR POC Glucose (60-115) mg/dL Random Glucose (60-115) mg/dL Calcium (8.4-10.2) mg/dL Magnesium (1.6-2.6) mg/dL Total Bilirubin (0.0-1.0) mg/dL Direct Bilirubin (0.0-0.5) mg/dL AST (5-31) U/L ALT (0-31) U/L Alkaline Phosphatase (39-117) U/L Troponin I High Sens (<3.5-17.0) ng/L Total Protein (6.5-8.0) g/dL Albumin (3.5-5.0) g/dL Urine Color YELLOW Urine Appearance CLEAR Urine pH 5.5 (5.0-8.0) Ur Specific Gwynn 1.025 (1.005-1.025) Urine Protein TRACE (NEG-TRACE) MG/DL Urine Glucose (UA) NEG (NEG) MG/DL Urine Ketones 15 (NEG) MG/DL Urine Blood 2+ H (NEG) Urine Nitrite NEG (NEG) Ur Leukocyte Esterase TRACE H (NEG) Urine RBC 1-4 (0) /HPF Urine WBC 0-2 (0-4) /HPF Ur Squamous Epith Cells 3+ /LPF Amorphous Sediment 1+ /LPF Urine Bacteria 1+ /LPF COVID-19 (KARLY) (Negative) COVID-19 Clin Com Influenza Type A (PREET) (Negative) Influenza Type B (PREET) (Negative) Influenza A & B Note Discharge Plan Discharge Clinical Impression: Generalized weakness Patient Disposition: Home, Self-Care Instructions: Weakness (ED) Additional Instructions: Your blood work and chest x-ray were reassuring today in the emergency department. It is important for you to continue to monitor your blood sugar at home and take prescribed medications. If symptoms persist or worsen, you have constant worsening weakness, fever, return to the emergency department You tested negative for COVID-19 and the flu Prescriptions: No Action bisacodyl [Dulcolax (bisacodyl)] 5 mg tablet,delayed release (DR/EC) 10 mg PO ONCE 1 Days Qty: 2 0RF Rx Instructions: take orally as directed prior to colonoscopy SPLIT PREP polyethylene glycol 3350 [Miralax] 17 gram/dose powder 238 g PO ONCE 1 Days Qty: 238 0RF Rx Instructions: take orally as directed prior to colonoscopy bisacodyl [Dulcolax (bisacodyl)] 5 mg tablet,delayed release (DR/EC) 10 mg PO ONCE 1 Days Qty: 2 0RF Rx Instructions: take orally as directed prior to colonoscopy tramadol 50 mg tablet 1 tab PO Q8H PRN (Reason: Pain) metformin 500 mg tablet extended release 24 hr 2 tab PO BID prazosin 1 mg capsule 1 cap PO BEDTIME levothyroxine 137 mcg tablet 137 mcg PO DAILY cholecalciferol (vitamin D3) 50 mcg (2,000 unit) tablet,chewable 50 mcg PO DAILY docusate sodium 100 mg capsule 100 mg PO DAILY lorazepam 1 mg tablet 1 mg PO DAILY PRN (Reason: Anxiety) amlodipine 5 mg tablet 5 mg PO DAILY atorvastatin 20 mg tablet 40 mg PO DAILY bupropion HCl 150 mg tablet extended release 24 hr 150 mg PO QAM sennosides [Senna Lax] 8.6 mg tablet 8.6 mg PO DAILY trazodone 100 mg tablet 100 mg PO BID lisinopril 20 mg tablet 20 mg PO DAILY citalopram [Celexa] 10 mg tablet 10 mg PO DAILY tizanidine [Zanaflex] 4 mg capsule 4 mg PO BEDTIME dicyclomine 10 mg capsule 10 mg PO QID Qty: 120 6RF peg 3350-electrolytes [Golytely] 236-22.74-6.74 -5.86 gram recon soln 240 ml PO Q10M 1 Days Qty: 4000 0RF Rx Instructions: until fecal effluent is clear; do not exceed a total volume of 2,000 mL omeprazole 20 mg capsule,delayed release(DR/EC) 20 mg PO DAILY 30 Days Qty: 30 6RF Referrals: [facility] [Primary Care Provider] -
[2022-01-13 14:08] VITALS: BP 146/78; PULSE 80
[2022-01-13 14:10] LABS: Alanine Aminotransferase 15 U/L (0-31); Albumin Level 3.9 g/dL (3.5-5.0); Alkaline Phosphatase 77 U/L (39-117); Aspartate Amino Transferase 14 U/L (5-31); Bilirubin Direct 0.2 mg/dL (0.0-0.5); Bilirubin Total 0.6 mg/dL (0.0-1.0); Magnesium 1.8 mg/dL (1.6-2.6); Total Protein 6.7 g/dL (6.5-8.0)
[2022-01-13 14:15] VITALS: BP 155/82; PULSE 77
[2022-01-13 14:17] VITALS: BP 155/83; PULSE 86
[2022-01-13 14:18] LABS: Troponin-I High Sensitivity < 3.5 ng/L (<3.5-17.0)
[2022-01-13 14:42] LABS: IDNOW Serial# 16C4AD1C; Influenza A Negative (Negative); Influenza B2 Negative (Negative)
[2022-01-13 15:51] VITALS: BP 142/68; PULSE 80; RESP 20; TEMP 36.7; O2SAT 98
[2022-01-13 16:09] LABS: Appearance Urine CLEAR; Color Urine YELLOW; Glucose Urine UA NEG (NEG); Leukocyte Esterase Urine TRACE (NEG); Nitrite Urine NEG (NEG); PH 5.5 (5.0-8.0); Specific Gravity - Urine 1.025 (1.005-1.025); UACC Culture Trigger NO; Urine Blood 2+ (NEG); Urine Ketones 15 MG/DL (NEG); Urine Protein TRACE MG/DL (NEG-TRACE)
[2022-01-13 16:15] LABS: Amorphous Sediment Urine 1+ /LPF; Bacteria Urine 1+ /LPF; Squamous Epithelial Cell Urine 3+ /LPF
[2022-01-13 16:16] LABS: WBC Urine 0-2 /HPF (0-4)
== END 2022-01-13 16:37 | disposition home or self-care (01) ==
PROVIDERS: Physician Assistant; Emergency Provider Emergency Medicine
DX: R53.1 Weakness (principal); E11.65 Type 2 diabetes mellitus with hyperglycemia; I10 Essential (primary) hypertension; G47.33 Obstructive sleep apnea (adult) (pediatric); Z79.84 Long term (current) use of oral hypoglycemic drugs; Z99.89 Dependence on other enabling machines and devices; Z20.822 Contact with and (suspected) exposure to COVID-19
CPT/HCPCS: 71045; 80048; 80076; 81001; 82947; 83735; 84484; 85025; 87502; 87635; 99283; 99284

== ENCOUNTER 2022-01-31 08:20 | Outpatient (REF) | payer MEDICAID, SELFPAY ==
--- NOTE | ~2022-01-31 | MM_ITS ---
EXAMINATION: MM SCREENING DIGITAL BREAST TOMOSYNTHESIS, BILATERAL CLINICAL INFORMATION: Screening. Asymptomatic. The lifetime risk of breast cancer based on the Tyrer-Cuzick Model is 10%. COMPARISON: Mammography: 03/30/2019, 12/03/2016, 11/16/2015 TECHNIQUE: Digital breast tomosynthesis is performed in both the craniocaudal and mediolateral oblique views along with computer-aided detection (CAD). Synthesized 2D images are generated from the tomosynthesis. Additional right CC and left cleavage view are provided. FINDINGS: There are scattered areas of fibroglandular density (ACR BI-RADS breast composition Category b). There are no significant masses, abnormal calcifications, or other abnormalities. Parenchymal pattern is similar to prior studies. The axilla and skin contours are unremarkable. MM/MM tomosynthesis screening BI IMPRESSION: No mammographic evidence of malignancy. ASSESSMENT: BI-RADS 1: Negative RECOMMENDATION: Routine annual mammography screening. This patient's information was entered into a reminder system with a target due date for their next mammogram.
== END 2022-01-31 08:21 | disposition home or self-care (01) ==
LOC: HO.MAMMO 08:20
PROVIDERS: Visit Provider Internal Medicine
DX: Z12.31 Encounter for screening mammogram for malignant neoplasm of breast (principal)
CPT/HCPCS: 77063; 77067

== ENCOUNTER 2022-02-27 10:35 | Day surgery (SDC) | payer MEDICAID, SELFPAY ==
[2022-02-21 10:44] VITALS: BMI 44.0
[2022-02-27 10:47] VITALS: BMI 43.9
[2022-02-27] MEDS: Lactated Ringers 1,000 ML 50 ML IVCONT (11:24)
[2022-02-27 11:27] LABS: Glucose, Whole Blood 138 mg/dL (60-115)
--- NOTE | 2022-02-27 12:11 | P.CONAN_ITS ---
[facility] Active Problems Active Problems: All Active Problems (Updated 02/21/22 @ 10:41 by Keily Izquierdo RN) Skull anomaly (Acute) Rectal bleeding (Acute) Tubular adenoma of colon (Acute) Irritable bowel syndrome with diarrhea (Acute) GERD (gastroesophageal reflux disease) (Acute) Osteoarthritis of left knee (Acute) Left knee pain (Acute) Past Medical History Medical History (Updated 02/21/22 @ 10:41 by Keily Izquierdo RN) Anxiety and depression Diabetes Elevated cholesterol GERD (gastroesophageal reflux disease) Hx of thyroid cancer Hypertension Left knee pain [place] on CPAP Osteoarthritis of left knee Family History Family History Mother Leukemia Diabetes Heart attack Father Esophageal adenocarcinoma Sister Breast cancer Brother Bone cancer Esophageal adenocarcinoma Family/Other Ovarian cancer Brother Prostate cancer Paternal Grandmother Melanoma Family history of problems with anesthesia: No Surgical History Surgical History History of back surgery History of colonoscopy History of endoscopy History of thyroidectomy History of Problems with Anesthesia: No Social History Social History Alcohol intake: current Alcohol intake frequency: holidays/special occasions only Patient Tobacco Use Status: Never used Tobacco Use of substances other than those prescribed or required for medical reasons: No Have you been hit, kicked, punched, or otherwise hurt by someone within the past year? If so, by whom?: No Are you DNR?: No Advance Directives: No Advance Directives Information Provided: Yes Recently lost weight without trying: No Nutrition Risks: No Nutritional Risk Meds Allergies Allergy/AdvReac Type Severity Reaction Status Date / Time No Known Allergies Allergy Mild NONE Verified 11/02/21 12:49 Active Medications: Current Medications Lactated Ringer's (Lr) 1,000 mls @ 50 mls/hr IVCONT .Q20H SARAH Last Admin: 02/27/22 11:24 Dose: 50 mls/hr Ondansetron HCl (Ondansetron Hcl 4 Mg/2 Ml Vial) 4 mg IVPUSH ONCE PRN PRN Reason: Nausea and Vomiting Home Medications Medication Instructions Recorded Confirmed Last Taken Type amlodipine 5 mg tablet 5 mg PO DAILY 05/18/20 02/21/22 Unknown History atorvastatin 20 mg tablet 40 mg PO DAILY 05/18/20 02/21/22 Unknown History bupropion HCl 150 mg 24 hr tablet, 150 mg PO QAM 05/18/20 08/31/21 Unknown History extended release cholecalciferol (vitamin D3) 50 50 mcg PO DAILY 05/18/20 02/21/22 Unknown History mcg (2,000 unit) chewable tablet citalopram 10 mg tablet (Celexa) 10 mg PO DAILY 05/18/20 02/21/22 Unknown History docusate sodium 100 mg capsule 100 mg PO DAILY 05/18/20 08/31/21 Unknown History levothyroxine 137 mcg tablet 137 mcg PO DAILY 05/18/20 02/21/22 Unknown History lisinopril 20 mg tablet 20 mg PO DAILY 05/18/20 02/21/22 Unknown History lorazepam 1 mg tablet 1 mg PO DAILY PRN Anxiety 05/18/20 02/21/22 Unknown History sennosides 8.6 mg tablet (Senna 8.6 mg PO DAILY 05/18/20 08/31/21 Unknown History Lax) tizanidine 4 mg capsule (Zanaflex) 4 mg PO BEDTIME 05/18/20 08/31/21 Unknown History trazodone 100 mg tablet 100 mg PO BID 05/18/20 02/21/22 Unknown History metformin 500 mg tablet,extended 2 tab PO BID 02/07/21 02/21/22 Unknown History release 24 hr tramadol 50 mg tablet 1 tab PO Q8H PRN Pain 02/07/21 02/21/22 Unknown History prazosin 1 mg capsule 1 cap PO BEDTIME 08/31/21 02/21/22 Unknown History Exam Exam Date and Time: February 27, 2022 1211 Height,Weight and Vital Signs: Height 5 ft 2 in Weight 108.862 kg Pertinent Lab Results Pertinent Lab Results: Laboratory Tests 02/27/22 11:23 POC Glucose 138 H Airway Mallampati Class: II TM Dist: >3cm Neck ROM: Full Heart: rrr Lungs: clear Assessment and Plan Final Anesthetic Review Family History of Problems with Anesthesia: No History of Problems with Anesthesia: No NPO: Yes ASA Class: II Final Preanesthetic Review: No Changes in Pt Med Stat, Meds/Allgs Chart Reviewed, Consent Obtained/Reviewed and Anes Risks/Benef Reviewed Patient Risk: Intermediate Anesthetic Plan Disposition: Standard PACU
--- NOTE | 2022-02-27 12:22 | MHC.SHP ---
Pre-Procedural Eval Section A Date of Service: 02/27/22 Section B Chief Complaint: benign neoplasm of colon Relevant Family History (Specify if Yes): No Relevant Social History: None Present Medications: see Short Stay Collaborative assessment Medical History: Significant History (Anxiety and depression Diabetes Elevated cholesterol GERD (gastroesophageal reflux disease) Hx of thyroid cancer Hypertension Left knee pain [place] on CPAP Osteoarthritis of left knee) History of Previous Operations: Relevant previous surgery/procedure and date(s) (History of back surgery History of colonoscopy History of endoscopy History of thyroidectomy) Allergies: Allergies Allergy/AdvReac Type Severity Reaction Status Date / Time No Known Allergies Allergy Mild NONE Verified 11/02/21 12:49 Review of Systems Sugical H&P ROS: Negative: Constitution, Cardiovascular, Respiratory, Neurological, Psychiatric, Hem-Onc, Allergic/Immunologic, Gastrointestinal, Genitourinary, Musculoskeletal, Integumentary, Endocrine and Eyes/Ears/Nose/Throat Exam Surgical H&P Exam: Normal: HEENT, Normal: Heart, Normal: Lungs, Normal: Extremities, Normal: Abdomen, Normal: Skin and Normal: Neurological Plan Diagnosis/Plan: Unchanged I have reviewed the history and physical and performed a pertinent physical examination on my patient. No changes have occurred unless specified.
--- NOTE | 2022-02-27 12:55 | W.PM.OPN ---
Operative Note Operative Note Date of Service: 02/27/22 Narrative: Operative Information Procedure Description: Colonoscopy Indication: hx of polyps Anesthesia: MAC COLONOSCOPY Instrument: Olympus variable stiffness pediatric scope 190L Colonoscopy Monitoring: Vital signs and clinical assessment, continuous EKG monitoring, Pulse oximetry, Carbon Dioxide monitoring and blood pressure monitoring were done throughout the procedure. Colon withdrawal time was 12 minutes. Procedure: The patient was placed in the left lateral decubitis position and pre-procedure medications were administered. After a digital rectal examination of the ano-rectum, the video colonoscope was inserted into the rectum and advanced through the colon to the cecum/TI. The colonoscope was slowly withdrawn in a retrograde panoramic fashion and the colon mucosa was carefully examined including a retroflexed view of the rectum. Findings and interventions are described below. Procedure Difficulty: moderate, pressure applied due to looping Findings: Terminal Ileum-normal Right sided retroflexion--normal Cecum:normal Ascending Colon: normal Transverse Colon -normal Descending Colon:normal Sigmoid Colon: moderate diverticulosis with mucosal hypertrophy Rectum: Retroflexion with small internal hemorrhoids, grade I Anorectum - normal Colon preparation: [place] Bowel Preparation Scale Right colon; 2 Transverse colon: 2 Left colon; 2 (0 = Unprepared colon segment with mucosa not seen due to solid stool that cannot be cleared. 1 = Portion of mucosa of the colon segment seen, but other areas of the colon segment not well seen due to staining, residual stool and/or opaque liquid. 2 = Minor amount of residual staining, small fragments of stool and/or opaque liquid, but mucosa of colon segment seen well. 3 = Entire mucosa of colon segment seen well with no residual staining, small fragments of stool or opaque liquid) Impression and Post Procedure Diagnosis: internal hemorrhoids diverticular disease Plan: High fiber diet leaflet Avoid straining at stool, epsom salts and sitz bath, anusol supps or cream Repeat Colonoscopy in 5 years due to hx of polyps or earlier if clinically indicated Above findings were reviewed with the patient and relevant handouts were provided if indicated.
[2022-02-27 13:01] VITALS: BP 123/64; PULSE 78; RESP 16; TEMP 36.1; O2SAT 98
[2022-02-27 13:15] VITALS: BP 118/88; PULSE 79; RESP 16; TEMP 36.1; O2SAT 100
== END 2022-02-27 13:58 ==
LOC: HO.SSS 10:35
PROVIDERS: Visit Provider Internal Medicine Gastroenterology
PROC: 0DJD8ZZ Inspection of Lower Intestinal Tract, Via Natural or Artificial Opening Endoscopic (ICD-10-PCS; CPT 45378; principal; 2022-02-27 11:50)
DX: D12.3 Benign neoplasm of transverse colon (principal); K62.5 Hemorrhage of anus and rectum; K58.0 Irritable bowel syndrome with diarrhea; K57.30 Diverticulosis of large intestine without perforation or abscess without bleeding; K64.0 First degree hemorrhoids; I10 Essential (primary) hypertension; K21.9 Gastro-esophageal reflux disease without esophagitis; E78.00 Pure hypercholesterolemia, unspecified; E11.9 Type 2 diabetes mellitus without complications; F41.8 Other specified anxiety disorders; G47.33 Obstructive sleep apnea (adult) (pediatric); Z79.84 Long term (current) use of oral hypoglycemic drugs; Z79.899 Other long term (current) drug therapy; Z99.89 Dependence on other enabling machines and devices; Z85.850 Personal history of malignant neoplasm of thyroid
CPT/HCPCS: 45378; 82947

== ENCOUNTER → 2022-03-14 10:18 | Outpatient (BNVA) | payer MEDICAID, SELFPAY | PROVIDERS: Visit Provider Nurse Practitioner | DX: D12.6 Benign neoplasm of colon, unspecified (principal); K21.9 Gastro-esophageal reflux disease without esophagitis | CPT/HCPCS: 99212 ==

== ENCOUNTER 2022-11-13 13:32 | Emergency (ER) | payer MEDICARE, MEDICAID, SELFPAY ==
[2022-11-13 14:35] VITALS: BP 155/87; PULSE 76; RESP 18; TEMP 36.1; O2SAT 98; BMI 39.2
--- NOTE | 2022-11-13 14:36 | ED_ITS ---
HPI - Abdominal Pain General Chief Complaint: Abdominal Pain <Jaymie Baltazar NP - Last Filed: 11/13/22 15:09> Stated Complaint: ? Internal Bleeding <Jaymie Baltazar NP - Last Filed: 11/13/22 15:09> Time Seen by Provider: 11/13/22 15:28 <Jaymie Baltazar NP - Last Filed: 11/13/22 15:09> Source: patient <IVAN Casey - Last Filed: 11/13/22 17:12> Mode of arrival: ambulatory <IVAN Casey - Last Filed: 11/13/22 17:12> Limitations: no limitations <IVAN Casey Last Filed: 11/13/22 17:12> History of Present Illness HPI narrative: 66-year-old female with a history of gastritis, GERD, irritable bowel syndrome with diarrhea, tubular adenoma of the colon, history of rectal bleeding in the past who presents to the ER for evaluation of worsening gastritis for the last 2 weeks, acutely worsened today. She states she has burning epigastric abdominal pain from her known ulcers. She does take medications for this but cannot recall the name. She denies any spicy or acidic foods. She occasionally drinks alcohol but denies any NSAIDs or anticoagulation. She states she has had black diarrhea lately. She does admit to using Pepto-Bismol. No nausea or vomiting. <IVAN Casey - Last Filed: 11/13/22 17:12> MD elicited complaint: abdominal pain <IVAN Casey - Last Filed: 11/13/22 17:12> Pertinent past history: gastritis <IVAN Casey - Last Filed: 11/13/22 17:12> Onset (ago): week(s) (2) <IVAN Casey Last Filed: 11/13/22 17:12> Pain Consistency: intermittent <IVAN Casey Last Filed: 11/13/22 17:12> Location: epigastric <IVAN Casey Last Filed: 11/13/22 17:12> Severity: moderate <IVAN Casey Last Filed: 11/13/22 17:12> Quality: aching and burning <IVAN Casey - Last Filed: 11/13/22 17:12> Radiation: none <IVAN Casey - Last Filed: 11/13/22 17:12> Migration to: no migration <IVAN Casey - Last Filed: 11/13/22 17:12> Exacerbating factors: nothing <IVAN Casey - Last Filed: 11/13/22 17:12> Relieving factors: nothing <IVAN Casey - Last Filed: 11/13/22 17:12> Context: history of similar episodes <IVAN Casey Last Filed: 11/13/22 17:12> Associated symptoms: diarrhea <IVAN Casey Last Filed: 11/13/22 17:12> Related Data Home Medications: Home Medications Medication Instructions Recorded Confirmed amlodipine 5 mg tablet 5 mg PO DAILY 05/18/20 02/21/22 atorvastatin 20 mg tablet 40 mg PO DAILY 05/18/20 02/21/22 bupropion HCl 150 mg 24 hr tablet, 150 mg PO QAM 05/18/20 08/31/21 extended release cholecalciferol (vitamin D3) 50 50 mcg PO DAILY 05/18/20 02/21/22 mcg (2,000 unit) chewable tablet citalopram 10 mg tablet (Celexa) 10 mg PO DAILY 05/18/20 02/21/22 docusate sodium 100 mg capsule 100 mg PO DAILY 05/18/20 08/31/21 levothyroxine 137 mcg tablet 137 mcg PO DAILY 05/18/20 02/21/22 lisinopril 20 mg tablet 20 mg PO DAILY 05/18/20 02/21/22 lorazepam 1 mg tablet 1 mg PO DAILY PRN Anxiety 05/18/20 02/21/22 sennosides 8.6 mg tablet (Senna 8.6 mg PO DAILY 05/18/20 08/31/21 Lax) tizanidine 4 mg capsule (Zanaflex) 4 mg PO BEDTIME 05/18/20 08/31/21 trazodone 100 mg tablet 100 mg PO BID 05/18/20 02/21/22 metformin 500 mg tablet,extended 2 tab PO BID 02/07/21 02/21/22 release 24 hr tramadol 50 mg tablet 1 tab PO Q8H PRN Pain 02/07/21 02/21/22 prazosin 1 mg capsule 1 cap PO BEDTIME 08/31/21 02/21/22 Previous Rx's Medication Instructions Recorded dicyclomine 10 mg capsule 10 mg PO QID #120 caps 10/02/21 omeprazole 20 mg capsule,delayed 20 mg PO DAILY 30 days #30 caps 11/02/21 release sucralfate 1 gram tablet (Carafate) 1 g PO BID #60 tabs 11/13/22 <Jaymie Baltazar NP - Last Filed: 11/13/22 15:09> Allergies/Adverse Reactions: Allergies Allergy/AdvReac Type Severity Reaction Status Date / Time No Known Allergies Allergy Mild NONE Verified 11/13/22 14:35 <Jaymie Baltazar NP - Last Filed: 11/13/22 15:09> Review of Systems Review of Systems Yes all other systems are reviewed and are negative <IVAN Casey - Last Filed: 11/13/22 17:12> PMFSH Past Medical History Medical History: Medical History Anxiety and depression Diabetes Elevated cholesterol GERD (gastroesophageal reflux disease) Hx of thyroid cancer Hypertension Left knee pain [place] on CPAP Osteoarthritis of left knee <Jaymie Baltazar NP - Last Filed: 11/13/22 15:09> Surgical History: Surgical History History of back surgery History of colonoscopy History of endoscopy History of thyroidectomy <Jaymie Baltazar NP - Last Filed: 11/13/22 15:09> Family History Family History: Family History Mother Leukemia Diabetes Heart attack Father Esophageal adenocarcinoma Sister Breast cancer Brother Bone cancer Esophageal adenocarcinoma Family/Other Ovarian cancer Brother Prostate cancer Paternal Grandmother Melanoma <Jaymie Baltazar NP - Last Filed: 11/13/22 15:09> Social History Social History: Social History Alcohol intake: current Alcohol intake frequency: holidays/special occasions only Patient Tobacco Use Status: Never used Tobacco Advance Directives: No Advance Directives Information Provided: No <Jaymie Baltazar NP - Last Filed: 11/13/22 15:09> Physical Exam ED Vital Signs: Vital Signs - 24 hr 11/13/22 14:35 Temperature 96.9 F Pulse Rate 76 Respiratory Rate 18 Blood Pressure 155/87 H Pulse Oximetry 98 Oxygen Delivery Method Room Air BMI result Body Mass Index 39.2 <Jaymie Baltazar NP - Last Filed: 11/13/22 15:09> Vital Signs - 24 hr 11/13/22 14:35 Temperature 96.9 F Pulse Rate 76 Respiratory Rate 18 Blood Pressure 155/87 H Pulse Oximetry 98 Oxygen Delivery Method Room Air BMI result Body Mass Index 39.2 <IVAN Casey - Last Filed: 11/13/22 17:12> Appearance: Alert. Oriented X3. No acute distress. Head: normocephalic, atraumatic. Eyes: Pupils equal, round and reactive to light. ENT: Pharynx normal. No tonsillar swelling or exudate. Neck: Normal inspection. Neck supple. CVS: Normal heart rate and rhythm. Pulses normal. Respiratory: No respiratory distress. Breath sounds normal. Abdomen: Obese, soft and nontender. +BS x4. HAILEE: brown heme negative stool Skin: Skin warm and dry. Normal skin color. Normal skin turgor. No rashes. Extremities: No lower extremity edema. No joint swelling. Neuro/psych: Oriented X 3. No motor deficit. No sensory deficit. CN II-XII intact. Normal speech and cognition. <IVAN Casey - Last Filed: 11/13/22 17:12> Course Course Course Narrative: This is a rapid medical exam. Deferred additional HPI, ROS, PE to primary provider. 66 yo female with history of gastritis/gastric ulcer, h/o thyroid cancer s/p thyroidectomy (11 yrs ago), HTN, depression, arthritis here with 2 weeks of upper abdominal pain with dark stools. Will obtain labs, UA, covid screen. NO aspirin use or AC therapy use. VSS. <Jaymie Baltazar NP - Last Filed: 11/13/22 15:09> Medical Decision Making Medical Decision Making MDM Narrative: 66-year-old female with history of GERD, gastritis, irritable bowel syndrome, tubular adenoma of the colon with history of rectal bleeding presents the ER for evaluation of burning epigastric pain for the last 2 weeks, acutely worse today. She has been taking Pepto-Bismol which explains her dark and black colored stools. Her stool was heme-negative in the emergency department and she had no evidence of anemia. She was given a GI cocktail with improvement in her pain. Her labs are unremarkable including a negative lipase. At this point she is stable for discharge from the emergency department with PPI, Carafate, dietary modifications and follow up with GI. <IVAN Casey - Last Filed: 11/13/22 17:12> Differential Diagnosis Differential Diagnoses: The differential diagnosis associated with the presentation includes <IVAN Casey - Last Filed: 11/13/22 17:12> Gastritis, PUD, gastroenteritis, pancreatitis, GERD, less likely duodenal perforation, HI <IVAN Casey - Last Filed: 11/13/22 17:12> Lab Data [facility] [place] Lab Attestation statement: I reviewed the patient's lab results. <IVAN Casye - Last Filed: 11/13/22 17:12> No anemia to suggest acute blood loss. <IVAN Casey - Last Filed: 11/13/22 17:12> Result Diagrams: 11/13/22 15:13 11/13/22 15:13 <Jaymie Baltazar NP - Last Filed: 11/13/22 15:09> Labs: Lab Results 11/13/22 11/13/22 11/13/22 Range/Units 15:13 15:13 15:13 WBC 11.7 H (4.8-10.8) X10*3/uL RBC 4.58 (4.20-5.50) X10*6/uL Hgb 14.5 (12.0-16.0) g/dl Hct 43.2 (37.0-47.0) % MCV 94.3 (80.0-98.0) fL MCH 31.7 (27.0-33.0) pg MCHC 33.6 (31.0-35.0) g/dl RDW 14.1 (11.0-16.0) % Plt Count 307 (160-400) X10*3/uL MPV 9.8 (9.4-12.3) fL Immature Gran % (Auto) 0.3 (0.0-0.4) % Neut % (Auto) 52.7 (45-73) % Lymph % (Auto) 38.5 (20-40) % Erie % (Auto) 6.6 (2-11) % Eos % (Auto) 1.3 (0-4) % Baso % (Auto) 0.6 (0-2) % Lymph # (Auto) 4.5 (1.2-4.9) X10*3/uL Erie # (Auto) 0.8 (0.1-1.2) X10*3/uL Eos # (Auto) 0.2 (0.0-0.4) X10*3/uL Baso # (Auto) 0.1 (0.0-0.2) X10*3/uL Abs Immat Gran (auto) 0.04 H (0.00-0.03) X10*3/uL Absolute Neuts (auto) 6.1 (2.0-8.3) x10*3/uL Absolute Nucleated RBC 0.000 (0.0-0.012) X10*3/uL Nucleated RBC % (auto) 0.0 (0.0-0.2) /100WBC Sodium 141 (135-145) mmol/L Potassium 4.2 (3.3-5.1) mmol/L Chloride 108 (96-108) mmol/L Carbon Dioxide 26 (22-29) mmol/L Anion Gap 11 L (12-20) BUN 9 (9-16) mg/dL Creatinine 0.86 (0.5-1.4) mg/dL Estim Creat Clear Calc 77.4 Estimated GFR > 60 Random Glucose 102 (60-115) mg/dL Calcium 9.7 D (8.4-10.2) mg/dL Total Bilirubin 0.5 (0.0-1.0) mg/dL Direct Bilirubin 0.1 (0.0-0.5) mg/dL AST 12 (5-31) U/L ALT 13 (0-31) U/L Alkaline Phosphatase 77 (39-117) U/L Total Protein 6.5 (6.5-8.0) g/dL Albumin 4.0 (3.5-5.0) g/dL Lipase 17 (8-78) U/L COVID-19 (KARLY) Negative (Negative) COVID-19 Clin Com See Note <Jaymie Couchxiang, SOFTWARE INSTALLER - Last Filed: 11/13/22 15:09> Lab Results 11/13/22 11/13/22 11/13/22 Range/Units 15:13 15:13 15:13 WBC 11.7 H (4.8-10.8) X10*3/uL RBC 4.58 (4.20-5.50) X10*6/uL Hgb 14.5 (12.0-16.0) g/dl Hct 43.2 (37.0-47.0) % MCV 94.3 (80.0-98.0) fL MCH 31.7 (27.0-33.0) pg MCHC 33.6 (31.0-35.0) g/dl RDW 14.1 (11.0-16.0) % Plt Count 307 (160-400) X10*3/uL MPV 9.8 (9.4-12.3) fL Immature Gran % (Auto) 0.3 (0.0-0.4) % Neut % (Auto) 52.7 (45-73) % Lymph % (Auto) 38.5 (20-40) % Erie % (Auto) 6.6 (2-11) % Eos % (Auto) 1.3 (0-4) % Baso % (Auto) 0.6 (0-2) % Lymph # (Auto) 4.5 (1.2-4.9) X10*3/uL Erie # (Auto) 0.8 (0.1-1.2) X10*3/uL Eos # (Auto) 0.2 (0.0-0.4) X10*3/uL Baso # (Auto) 0.1 (0.0-0.2) X10*3/uL Abs Immat Gran (auto) 0.04 H (0.00-0.03) X10*3/uL Absolute Neuts (auto) 6.1 (2.0-8.3) x10*3/uL Absolute Nucleated RBC 0.000 (0.0-0.012) X10*3/uL Nucleated RBC % (auto) 0.0 (0.0-0.2) /100WBC Sodium 141 (135-145) mmol/L Potassium 4.2 (3.3-5.1) mmol/L Chloride 108 (96-108) mmol/L Carbon Dioxide 26 (22-29) mmol/L Anion Gap 11 L (12-20) BUN 9 (9-16) mg/dL Creatinine 0.86 (0.5-1.4) mg/dL Estim Creat Clear Calc 77.4 Estimated GFR > 60 Random Glucose 102 (60-115) mg/dL Calcium 9.7 D (8.4-10.2) mg/dL Total Bilirubin 0.5 (0.0-1.0) mg/dL Direct Bilirubin 0.1 (0.0-0.5) mg/dL AST 12 (5-31) U/L ALT 13 (0-31) U/L Alkaline Phosphatase 77 (39-117) U/L Total Protein 6.5 (6.5-8.0) g/dL Albumin 4.0 (3.5-5.0) g/dL Lipase 17 (8-78) U/L COVID-19 (KARLY) Negative (Negative) COVID-19 Clin Com See Note <IVAN Casey - Last Filed: 11/13/22 17:12> Discharge Plan Discharge Clinical Impression: Gastritis <Jaymie Baltazar NP - Last Filed: 11/13/22 15:09> Patient Disposition: Home, Self-Care <Jaymie Baltazar NP - Last Filed: 11/13/22 15:09> Instructions: Gastritis (DC), Diet for Stomach Ulcers and Gastritis (ED) <Jaymie Baltazar NP - Last Filed: 11/13/22 15:09> Additional Instructions: Your lab workup today was unremarkable. Your pain is most likely due to gastritis which is and irritation and inflammation of your stomach lining. Start taking the prescribed medication as directed for this. Stick to a bland diet. Avoid foods high in acid, avoid alcohol and NSAID medications like Aleve, Motrin, Advil or ibuprofen. Follow up with your doctor as needed. Follow up with GI doctor if you symptoms persist despite dietary modifications and medication. If you develop new or worsening symptoms call 911 or come back to the ER for further evaluation. Tu an?lisis de laboratorio de aleksandra no tuvo nada especial. Lo m?s probable es que burdick dolor se deba a gastritis, que es irritaci?n e inflamaci?n del revestimiento del est?michael. Comience a rylan la medicaci?n prescrita seg?n las indicaciones para ello. Seguir matt dieta blanda. Evite los alimentos con alto contenido de ?cido, evite el alcohol y los medicamentos BRANDON sharon Aleve, Motrin, Advil o ibuprofeno. Lux un seguimiento con burdick m?dico seg?n sea necesario. Lux un seguimiento con el m?dico GI si los s?ntomas persisten a pesar de las modificaciones en la dieta y la medicaci?n. Si desarrolla s?ntomas nuevos o que empeoran, llame al 911 o regrese a la song de emergencias para matt evaluaci?n adicional. <Jaymie Baltazar NP - Last Filed: 11/13/22 15:09> Prescriptions: New sucralfate [Carafate] 1 gram tablet 1 g PO BID Qty: 60 0RF No Action tramadol 50 mg tablet 1 tab PO Q8H PRN (Reason: Pain) metformin 500 mg tablet extended release 24 hr 2 tab PO BID prazosin 1 mg capsule 1 cap PO BEDTIME levothyroxine 137 mcg tablet 137 mcg PO DAILY cholecalciferol (vitamin D3) 50 mcg (2,000 unit) tablet,chewable 50 mcg PO DAILY docusate sodium 100 mg capsule 100 mg PO DAILY lorazepam 1 mg tablet 1 mg PO DAILY PRN (Reason: Anxiety) amlodipine 5 mg tablet 5 mg PO DAILY atorvastatin 20 mg tablet 40 mg PO DAILY bupropion HCl 150 mg tablet extended release 24 hr 150 mg PO QAM sennosides [Senna Lax] 8.6 mg tablet 8.6 mg PO DAILY trazodone 100 mg tablet 100 mg PO BID lisinopril 20 mg tablet 20 mg PO DAILY citalopram [Celexa] 10 mg tablet 10 mg PO DAILY tizanidine [Zanaflex] 4 mg capsule 4 mg PO BEDTIME dicyclomine 10 mg capsule 10 mg PO QID Qty: 120 6RF omeprazole 20 mg capsule,delayed release(DR/EC) 20 mg PO DAILY 30 Days Qty: 30 6RF <Jaymie Baltazar NP - Last Filed: 11/13/22 15:09> Referrals: [facility] [Provider Group] (gastritis) <Jaymie Baltazar NP - Last Filed: 11/13/22 15:09> Print Language: Lao <Jaymie Baltazar NP - Last Filed: 11/13/22 15:09>
[2022-11-13 15:19] LABS: MANUAL DIFF FLAG NO
[2022-11-13 15:22] LABS: Basophils Absolute Auto 0.1 X10*3/uL (0.0-0.2); Basophils Percent Auto 0.6 % (0-2); Eosinophils Absolute Auto 0.2 X10*3/uL (0.0-0.4); Eosinophils Percent Auto 1.3 % (0-4); Hematocrit 43.2 % (37.0-47.0); Hemoglobin 14.5 g/dl (12.0-16.0); Imm Gran Abs Auto 0.04 X10*3/uL (0.00-0.03); Imm Gran Pct Auto 0.3 % (0.0-0.4); Lymphocytes Absolute Auto 4.5 X10*3/uL (1.2-4.9); Lymphocytes Percent Auto 38.5 % (20-40); Mean Corpuscular HGB Conc 33.6 g/dl (31.0-35.0); Mean Corpuscular Hemoglobin 31.7 pg (27.0-33.0); Mean Corpuscular Volume 94.3 fL (80.0-98.0); Mean Platelet Volume 9.8 fL (9.4-12.3); Monocytes Absolute Auto 0.8 X10*3/uL (0.1-1.2); Monocytes Percent Auto 6.6 % (2-11); Neutrophils Absolute Auto 6.1 x10*3/uL (2.0-8.3); Neutrophils Percent Auto 52.7 % (45-73); Platelet Count 307 X10*3/uL (160-400); Red Blood Count 4.58 X10*6/uL (4.20-5.50); Red Cell Distribution Width 14.1 % (11.0-16.0); White Blood Count 11.7 X10*3/uL (4.8-10.8)
[2022-11-13 15:37] LABS: Alanine Aminotransferase 13 U/L (0-31); Alkaline Phosphatase 77 U/L (39-117); Anion Gap 11 (12-20); Aspartate Amino Transferase 12 U/L (5-31); Bilirubin Direct 0.1 mg/dL (0.0-0.5); Bilirubin Total 0.5 mg/dL (0.0-1.0); Blood Urea Nitrogen 9 mg/dL (9-16); Calcium 9.7 mg/dL (8.4-10.2); Carbon Dioxide 26 mmol/L (22-29); Chloride 108 mmol/L (96-108); Creatinine Clr Calc Pharmacy 77.4; Estimated Glomerular Filt Rate > 60; Glucose Random 102 mg/dL (60-115); Lipase 17 U/L (8-78); Potassium 4.2 mmol/L (3.3-5.1); Sodium 141 mmol/L (135-145); Total Protein 6.5 g/dL (6.5-8.0)
[2022-11-13 16:10] LABS: IDNOW Serial# 55D5AD1C
[2022-11-13 16:11] LABS: COVID-19 Test Negative (Negative)
[2022-11-13 17:20] VITALS: BP 160/85; PULSE 80; RESP 16; TEMP 36.8; O2SAT 97
[2022-11-13] MEDS: Magnesium Hydrox/Alum Hydrox 30 ML ORAL.SUSP PO (17:26)
[2022-11-13] MEDS: Lidocaine HCl Viscous 2 % 15 ML SOLUTION MUCOUS MEM (17:26)
[2022-11-13] MEDS: Famotidine 20 MG TABLET PO (17:26)
[2022-11-13] MEDS: PHENobarb/Hyoscy/Atropine/Scop 10 ML ELIXIR PO (17:27)
[2022-11-13 17:37] LABS: OBS1 NEGATIVE (NEGATIVE)
[2022-11-13 17:38] LABS: OBS Int Ctl Valid YES
--- NOTE | 2022-11-13 17:38 | PC.NURSE ---
Pt on stretcher airway open and patent, no obvious signs of distress, no difficulty breathing. Skin normal for ethnicity, warm, and dry. saturator operator at bedside. Pt a&ox4. Lung sounds clr and equal bilaterally. Heart sounds normal. Bowel sounds present and active all rodríguez, abdomen soft. Pt complaining of squeezing upper abdominal pain rated 10/10. No edema noted.
[2022-11-13 18:45] VITALS: BP 163/86; PULSE 80; RESP 20; O2SAT 98
== END 2022-11-13 18:48 | disposition home or self-care (01) ==
PROVIDERS: Nurse Practitioner Family; Physician Assistant; Emergency Provider Emergency Medicine
DX: K29.70 Gastritis, unspecified, without bleeding (principal); R10.13 Epigastric pain; K58.9 Irritable bowel syndrome, unspecified; E11.9 Type 2 diabetes mellitus without complications; I10 Essential (primary) hypertension; K21.9 Gastro-esophageal reflux disease without esophagitis; Z79.899 Other long term (current) drug therapy; Z20.822 Contact with and (suspected) exposure to COVID-19
CPT/HCPCS: 80048; 80076; 82272; 83690; 85025; 87635; 99283; 99284

== ENCOUNTER → 2022-11-20 14:15 | Outpatient (BNVA) | payer MEDICARE, MEDICAID, SELFPAY | PROVIDERS: Visit Provider Nurse Practitioner | DX: R10.13 Epigastric pain (principal); D12.6 Benign neoplasm of colon, unspecified; K21.9 Gastro-esophageal reflux disease without esophagitis; E66.01 Morbid (severe) obesity due to excess calories; Z68.41 Body mass index [BMI] 40.0-44.9, adult | CPT/HCPCS: 99212 ==

== ENCOUNTER → 2023-01-01 13:48 | Outpatient (BNVA) | payer MEDICARE, MEDICAID, SELFPAY | PROVIDERS: Visit Provider Nurse Practitioner | DX: K21.9 Gastro-esophageal reflux disease without esophagitis (principal); R10.13 Epigastric pain; K58.0 Irritable bowel syndrome with diarrhea; Z79.899 Other long term (current) drug therapy | CPT/HCPCS: 99212 ==

== ENCOUNTER 2023-04-30 12:09 | Outpatient (REF) | payer MEDICARE, MEDICAID, SELFPAY ==
[2023-04-30 14:11] LABS: Creatinine Urine 332.27 mg/dL; Microalbum/Creatinine Ratio Ur 5.4 ug/mg cr (<30)
== END 2023-04-30 12:10 | disposition home or self-care (01) ==
LOC: HO.HHCL 12:09
PROVIDERS: Visit Provider Nurse Practitioner Primary Care
DX: E11.69 Type 2 diabetes mellitus with other specified complication (principal); E78.5 Hyperlipidemia, unspecified
CPT/HCPCS: 82043; 82570

== ENCOUNTER 2023-06-20 15:37 | Outpatient (REF) | payer MEDICARE, MEDICAID, SELFPAY ==
[2023-06-20 17:33] LABS: Hematocrit 45.5 % (37.0-47.0); Hemoglobin 14.9 g/dl (12.0-16.0); Mean Corpuscular HGB Conc 32.7 g/dl (31.0-35.0); Mean Corpuscular Hemoglobin 31.4 pg (27.0-33.0); Platelet Count 393 X10*3/uL (160-400); Red Blood Count 4.74 X10*6/uL (4.20-5.50); Red Cell Distribution Width 13.7 % (11.0-16.0); White Blood Count 13.2 X10*3/uL (4.8-10.8)
[2023-06-20 17:50] LABS: Alanine Aminotransferase 10 U/L (0-31); Albumin Level 4.3 g/dL (3.5-5.0); Alkaline Phosphatase 86 U/L (39-117); Anion Gap 13 (12-20); Aspartate Amino Transferase 14 U/L (5-31); Bilirubin Total 0.2 mg/dL (0.0-1.0); Blood Urea Nitrogen 14 mg/dL (9-16); Calcium 9.9 mg/dL (8.4-10.2); Carbon Dioxide 26 mmol/L (22-29); Chloride 107 mmol/L (96-108); Estimated Glomerular Filt Rate > 60; Glucose Random 98 mg/dL (60-115); Magnesium 2.1 mg/dL (1.6-2.6); Sodium 142 mmol/L (135-145); Total Protein 7.9 g/dL (6.5-8.0)
[2023-06-20 17:52] LABS: Troponin-I High Sensitivity < 2.7 ng/L (<3.5-17.0)
[2023-06-20 18:06] LABS: Band Neutrophils Percent 2 % (3-5); Basophils Abs Manual 0.3 X10*3/uL (0.0-0.2); Basophils Percent Manual 2 % (0-2); Eosinophils Absolute Manual 0.3 X10*3/uL (0.0-0.4); Eosinophils Percent Manual 2 % (0-4); Lymphocytes Absolute Manual 5.9 X10*3/uL (1.2-4.9); Lymphocytes Percent Manual 45 % (20-40); Monocytes Absolute Manual 0.5 X10*3/uL (0.1-1.2); Monocytes Percent Manual 4 % (2-11); Neutrophils Absolute Manual 6.2 X10*3/uL (2.0-8.3); Neutrophils Percent Manual 45 % (45-73); Platelet Estimate NORMAL (NORMAL); Platelet Morphology Comment NORMAL; RBC Morphology NORMAL
== END 2023-06-20 15:38 | disposition home or self-care (01) ==
LOC: HO.HHCL 15:37
PROVIDERS: Visit Provider Student in an Organized Health Care Education/Training Program
DX: R07.9 Chest pain, unspecified (principal)
CPT/HCPCS: 36415; 80053; 83735; 84443; 84484; 85007; 85027

== ENCOUNTER 2023-06-30 08:22 | Outpatient (AMB) | payer MEDICARE, MEDICAID, SELFPAY ==
--- NOTE | 2023-06-30 08:24 | MHC.OFFVIS ---
Intake Vital Signs 06/30/23 08:25 Height 5 ft 4 in Weight 220 lb 14.451 oz BMI 37.9 BP 120/66 Blood Pressure Location Lt brachial Position Sitting Pulse 92 Intake Visit Reasons: STAT-COUNSELING SERVICES DIRECTOR/Dr. Diogenes Castle/Chest pain,syncopal event Intake Note: NPV Assistant Professor Of English Required: No Accompanied by: Family/Other Allergies No Known Allergies Allergy (Mild, Verified 06/30/23 08:27) NONE Medication List - Last Reconciled 06/30/23 by Ramón Morales MD amlodipine 5 mg PO DAILY aspirin 1 tab PO QAM atorvastatin 40 mg PO DAILY bupropion HCl 150 mg PO QAM cholecalciferol (vitamin D3) 50 mcg PO DAILY citalopram (Celexa) 10 mg PO DAILY dicyclomine 10 mg PO QID docusate sodium 100 mg PO DAILY empagliflozin (Jardiance) mg PO levothyroxine 137 mcg PO DAILY lisinopril 20 mg PO DAILY lorazepam 1 mg PO DAILY PRN metformin ER 1,000 mg PO BID omeprazole 40 mg PO DAILY 30 days prazosin 1 cap PO BEDTIME sennosides (Senna Lax) 8.6 mg PO DAILY sucralfate (Carafate) 2 grams (2 x 1 gram) PO DAILY tizanidine (Zanaflex) 4 mg PO BEDTIME tramadol 1 tab PO Q8H PRN trazodone 100 mg PO BID HPI HPI Comments History of Present Illness Details This is a cardiology consultation regarding syncope as well as chest tightness. Patient with many comorbidities including diabetes, hypertension, dyslipidemia. No known coronary artery disease or myocardial infarction or cardiomyopathy. Apparently patient went to [place] as a brother had possed away. In that setting, she was about to have food when she suddenly passed out. Apparently not emotional or otherwise tearful at that time. Then other instance of passing out happen when she was at a restaurant locally. Then went to ER but discharged home. Otherwise, she has had off and on episodes of chest tightness when she gets angry according to her. However, not exertion. Per PCP notes, the syncopal event has been thought to be from dehydration. There [place] [facility] [place] when apparently she was tested positive for COVID during the syncopal event. She was thought to be dehydrated from COVID. However, this was in July 2022. Hence the actual sequence of events/timing not very clear. Daughter was the main primer and powder canning leader and the appropriate form signed. REPLACED BY [facility] Medical History Anxiety and depression Diabetes Elevated cholesterol GERD (gastroesophageal reflux disease) Hx of thyroid cancer Hypertension Left knee pain [place] on CPAP Osteoarthritis of left knee Surgical History History of endoscopy History of colonoscopy History of thyroidectomy History of back surgery Family History Mother Leukemia Diabetes Heart attack Father Esophageal adenocarcinoma Sister Breast cancer Brother Bone cancer Esophageal adenocarcinoma Family/Other Ovarian cancer Brother Prostate cancer Paternal Grandmother Melanoma Alcohol intake: current Alcohol intake frequency: holidays/special occasions only Patient Tobacco Use Status: Never used Tobacco Review of Systems Const Denies chills, Denies daytime sleepiness, Denies fatigue, Denies fever(s), Denies frequent falls, Denies night sweats, Denies snoring, Denies weakness, Denies weight gain and Denies weight loss Eyes Denies loss of vision ENT Denies dizziness and Denies hearing loss Card Denies chest pain, Denies chest pain with activity, Denies syncope, Denies rapid heart rate, Denies edema, Denies claudication, Denies leg edema, Denies lightheadedness, Denies palpitations, Denies dyspnea, Denies dyspnea on exertion and Denies orthopnea Resp Denies cough, Denies excessive phlegm production, Denies dyspnea, Denies dyspnea on exertion, Denies snoring and Denies wheezing GI Denies abdominal pain, Denies hematochezia, Denies change in bowel habits, Denies change in stool character, Denies heartburn, Denies nausea and Denies vomiting Denies hematuria, Denies urinary frequency and Denies dysuria Musc Denies arthralgias, Denies muscle weakness, Denies numbness and Denies tingling Skin/Breast Denies nail changes and Denies rash Neuro Denies Abnormal speech present, Denies dizziness, Denies syncope, Denies frequent falls, Denies loss of vision, Denies memory loss, Denies numbness, Denies tingling and Denies weakness Psych Denies depression and Denies memory loss Endo Denies fatigue and Denies palpitations Aller/Immun Denies wheezing Physical Exam Vital Signs: Last Vital Signs Pulse 92 06/30/23 08:25 BP 120/66 06/30/23 08:25 BMI result Body Mass Index 37.9 Const General: comfortable and no acute distress Orientation/consciousness: patient oriented x3 HEENT Other: Unremarkable Head: Yes normal to inspection Neck Neck: Yes normal visual inspection Chest Chest palpation & inspection: normal inspection of the chest Resp Auscultation: clear to auscultation bilaterally Cardio Palpation: normal PMI Heart sounds: S1 normal heart sound present, S2 normal heart sound present, no gallops, no murmurs and no rubs GI Palpation (GI): Soft to palpation Back/Spine/Pelvis Other: unremarkable Skin General skin exam: no rashes or lesions noted Neuro General: patient oriented x3 Speech: No Abnormal speech present Extrem General: Yes normal to inspection Psych Mental Status: mental status grossly normal Assessment & Plan Assessment & Plan (1) Syncope and collapse: Code(s): R55 - Syncope and collapse Plan: Uncertain etiology. At least on 1 instance, she was positive for COVID and thought to be dehydrated. Otherwise, could be vasovagal. Will check an echocardiogram and Holter. (2) Precordial chest pain: Code(s): R07.2 - Precordial pain Plan: In the EKG sent from PCP, underlying rhythm is sinus. Nonspecific ST-T changes. Due to multiple cardiovascular risk factors, we will get an exercise stress perfusion imaging study. Plan Discussed with daughter who came for appointment. Follow-up after testing. 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
[2023-06-30 08:25] VITALS: BP 120/66; PULSE 92; BMI 37.9
== END 2023-06-30 08:48 | disposition home or self-care (01) ==
PROVIDERS: Visit Provider Internal Medicine
DX: R55 Syncope and collapse (principal); R07.2 Precordial pain
CPT/HCPCS: 99204

== ENCOUNTER → 2023-06-30 08:22 | Outpatient (BNVA) | payer MEDICARE, MEDICAID, SELFPAY | PROVIDERS: Visit Provider Internal Medicine | DX: R55 Syncope and collapse (principal); R07.2 Precordial pain | CPT/HCPCS: 99202 ==

== ENCOUNTER 2023-07-16 20:12 | Emergency (ER) | payer MEDICARE, MEDICAID, SELFPAY ==
[2023-07-16 20:12] VITALS: BP 169/91; PULSE 96; RESP 18; TEMP 36.6; O2SAT 98; BMI 39.1
--- NOTE | 2023-07-16 20:15 | ED.FEMALEGU ---
HPI - Female Genitourinary General Chief complaint: Urogenital-Female Stated complaint: ?STI Time Seen by Provider: 07/16/23 22:29 Source: patient Mode of arrival: ambulatory Limitations: language barrier (Syriac speaking only, sales representative facility services used) History of Present Illness HPI Narrative: 67-year-old female with history of diabetes, [place], GERD, anxiety, elevated cholesterol, hypertension, thyroid cancer (2012), who presents emergency department for evaluation of urinary frequency, dysuria and urgency x2 weeks with symptoms getting worse over the past week. She is also complaining of redness and burning of the skin in her vaginal area and thighs. She states her symptoms feel similar to when she had a urinary tract infection the past. She denied fever, chills, rhinorrhea, nausea, vomiting, diarrhea, abdominal pain. Related Data Home Medications Medication Instructions Recorded Confirmed amlodipine 5 mg tablet 5 mg PO DAILY 05/18/20 06/30/23 atorvastatin 20 mg tablet 40 mg PO DAILY 05/18/20 06/30/23 bupropion HCl 150 mg 24 hr tablet, 150 mg PO QAM 05/18/20 06/30/23 extended release cholecalciferol (vitamin D3) 50 50 mcg PO DAILY 05/18/20 06/30/23 mcg (2,000 unit) chewable tablet citalopram 10 mg tablet (Celexa) 10 mg PO DAILY 05/18/20 06/30/23 docusate sodium 100 mg capsule 100 mg PO DAILY 05/18/20 06/30/23 levothyroxine 137 mcg tablet 137 mcg PO DAILY 05/18/20 06/30/23 lisinopril 20 mg tablet 20 mg PO DAILY 05/18/20 06/30/23 lorazepam 1 mg tablet 1 mg PO DAILY PRN Anxiety 05/18/20 06/30/23 sennosides 8.6 mg tablet (Senna 8.6 mg PO DAILY 05/18/20 06/30/23 Lax) tizanidine 4 mg capsule (Zanaflex) 4 mg PO BEDTIME 05/18/20 06/30/23 trazodone 100 mg tablet 100 mg PO BID 05/18/20 06/30/23 tramadol 50 mg tablet 1 tab PO Q8H PRN Pain 02/07/21 06/30/23 prazosin 1 mg capsule 1 cap PO BEDTIME 08/31/21 06/30/23 aspirin 81 mg chewable tablet 1 tab PO QAM 06/30/23 06/30/23 empagliflozin 25 mg tablet mg PO 06/30/23 06/30/23 (Jardiance) metformin 500 mg tablet,extended 1,000 mg PO BID 06/30/23 06/30/23 release 24 hr Previous Rx's Medication Instructions Recorded dicyclomine 10 mg capsule 10 mg PO QID #120 caps 10/02/21 omeprazole 40 mg capsule,delayed 40 mg PO DAILY 30 days #30 caps 01/24/23 release sucralfate 1 gram tablet (Carafate) 2 g (2 x 1 gram) PO DAILY #60 tabs 01/24/23 cefuroxime axetil 250 mg tablet 250 mg PO Q12H 5 days #10 tabs 07/16/23 nystatin 100,000 unit/gram topical 1 appl topical BID Over affected 07/16/23 ointment area #30 grams phenazopyridine 200 mg tablet 200 mg PO TID PRN Burning with 07/16/23 (Pyridium) urination 3 days #9 tabs Allergies Allergy/AdvReac Type Severity Reaction Status Date / Time No Known Allergies Allergy Mild NONE Verified 06/30/23 08:27 Review of Systems Review of Systems: Yes all other systems are reviewed and are negative [facility] Past Medical History Medical History Anxiety and depression Diabetes Elevated cholesterol GERD (gastroesophageal reflux disease) Hx of thyroid cancer Hypertension Left knee pain [place] on CPAP Osteoarthritis of left knee Surgical History History of endoscopy History of colonoscopy History of thyroidectomy History of back surgery Family History Family History Mother Leukemia Diabetes Heart attack Father Esophageal adenocarcinoma Sister Breast cancer Brother Bone cancer Esophageal adenocarcinoma Family/Other Ovarian cancer Brother Prostate cancer Paternal Grandmother Melanoma Social History Social History Alcohol intake: current Alcohol intake frequency: holidays/special occasions only Patient Tobacco Use Status: Never used Tobacco Advance Directives: No Physical Exam Vital Signs: Vital Signs: Last Vital Signs Temp 98.9 F 12/13/23 22:41 Pulse 88 07/16/23 22:41 Resp 16 07/16/23 22:41 BP 141/74 H 07/16/23 22:41 Pulse Ox 97 07/16/23 22:41 O2 Del Method Room Air 07/16/23 22:41 BMI result Body Mass Index 39.1 Vital signs were normal Exam: General: Awake, alert in no distress Head: Normocephalic, atraumatic EENT: PERRL, Lids normal, sclera normal, conjunctiva normal, nose normal , ears normal, throat without erythema or exudates Neck: Supple, no adenopathy, no trachea midline or C-spine tenderness Lung: breath sounds symmetric, no wheezing, rales or rhonchi Chest: symmetric movement, nontender Heart: regular rate and rhythm, normal S1, S2 no murmurs or rubs Abdomen: soft, mild suprapubic tenderness r, nondistended, normal bowel sounds Back: no vertebral tenderness, no CVAT Extremities: no deformities, moves all extremities symmetrically Skin: Patient has erythema over her pubis area, external vulva, and intertriginous areas of the groin extending down the thighs Neuro: Awake, alert, oriented, normal speech,moves all extremities symmetrically Psych: Pleasant, cooperative Course Course Course Narrative: RME: 66-year-old female with a history of gastritis, GERD, irritable bowel syndrome with diarrhea, tubular adenoma of the colon, history of rectal bleeding in the past who presents to the ED c/o dysuria x2 weeks w/erythema & irritation to area. Admits has been itching & may have scratched herself. Denies vaginal bleeding/discharge, abd pain, N/V. Denies concern for STI or being currently sexually active UA and CTNG ordered Full HPI, ROS and PE to be performed by primary ED provider. Medical Decision Making Medical Decision Making MDM Narrative: 67-year-old female with history of diabetes, [place], GERD, anxiety, elevated cholesterol, hypertension, thyroid cancer (2012), who presents emergency department for evaluation of urinary frequency, dysuria and urgency x2 weeks , worse x1 week with erythema over the pubic and intertriginous areas of her thighs. Examination did revealed mild suprapubic tenderness and intertriginous candidiasis as well as candidiasis of the pubic area. My interpretation patient's laboratory evaluation is as follows: Urinalysis positive for glucose, blood, leukocyte esterase. Microscopic revealed 3-5 RBCs, greater than 50 WBCs, 0-2 epithelial cells, no bacteria Given the patient's symptoms and urine evaluation which revealed greater than 50 WBCs with no significant squamous cells but no bacteria, I will treat the patient empirically for urinary tract infection with cefuroxime 250 mg every 12 hours x5 days. Patient's intertriginous and pubis candidiasis we treated with nystatin ointment twice a day for 2 weeks. Patient was also prescribed Pyridium 200 mg 3 times a day as needed for dysuria. Printed and verbal instructions discharged home Differential Diagnosis Differential Diagnoses: The differential diagnosis associated with the presentation includes Differential diagnosis includes was not limited to the a urinary tract infection, urethritis, bladder spasm, intertriginous candidiasis Lab Data [facility] Lab Attestation statement: I reviewed the patient's lab results. See [facility] above Labs: Lab Results 07/16/23 Range/Units 22:01 Urine Color Yellow Urine Appearance Clear Urine pH 5.5 (5.0-9.0) Ur Specific [place] >= 1.030 H (1.005-1.025) Urine Protein Trace (Neg-Trace) mg/dL Urine Glucose (UA) >=1000 H (Negative) mg/dL Urine Ketones Trace (Negative) mg/dL Urine Blood Small (1+) H (Negative) Urine Nitrite Negative (Negative) Ur Leukocyte Esterase Small (1+) H (Negative) Urine RBC 3-5 H (0-2) /HPF Urine WBC >50 H (0-5) /HPF Ur Squamous Epith Cells 0-2 (0-2) /HPF Urine Bacteria None Seen (None Seen) Hyaline Casts 0-2 (0-2) /LPF Prescription Management I considered prescription management with: Pain Medication and Antibiotic Chronic Conditions Patient?s care impacted by: Diabetes Discharge Plan Discharge Clinical Impression: Candidiasis, intertriginous Urinary tract infection Qualifiers: Urinary tract infection type: acute cystitis Patient Disposition: Home, Self-Care Instructions: Skin Yeast Infection (ED), Urinary Tract Infection in Older Adults (ED) Additional Instructions: Your symptoms are consistent with a urinary tract infection Take cefuroxime 250 mg pills, 1 pill every 12 hours for 5 days. This will treat the urine infection. Take Pyridium 200 mg pills, 1 pill 3 times a day as needed for burning with urination, take this for 3 days You also have a yeast infection of the skin between your thighs and the skin over the vagina Apply nystatin ointment twice a day to the skin between your thighs and over the vagina for 2 weeks. Follow-up with your doctor in 2 days. Please return to the emergency department if your symptoms get worse or if you develop any symptoms that are concerning to you. Prescriptions: New cefuroxime axetil 250 mg tablet 250 mg PO Q12H 5 Days Qty: 10 0RF phenazopyridine [Pyridium] 200 mg tablet 200 mg PO TID PRN (Reason: Burning with urination) 3 Days Qty: 9 0RF nystatin 100,000 unit/gram ointment 1 appl topical BID Qty: 30 0RF No Action sucralfate [Carafate] 1 gram tablet 2 g PO DAILY Qty: 60 0RF omeprazole 40 mg capsule,delayed release(DR/EC) 40 mg PO DAILY 30 Days Qty: 30 6RF tramadol 50 mg tablet 1 tab PO Q8H PRN (Reason: Pain) metformin 500 mg tablet extended release 24 hr 1,000 mg PO BID prazosin 1 mg capsule 1 cap PO BEDTIME levothyroxine 137 mcg tablet 137 mcg PO DAILY cholecalciferol (vitamin D3) 50 mcg (2,000 unit) tablet,chewable 50 mcg PO DAILY docusate sodium 100 mg capsule 100 mg PO DAILY lorazepam 1 mg tablet 1 mg PO DAILY PRN (Reason: Anxiety) amlodipine 5 mg tablet 5 mg PO DAILY atorvastatin 20 mg tablet 40 mg PO DAILY bupropion HCl 150 mg tablet extended release 24 hr 150 mg PO QAM sennosides [Senna Lax] 8.6 mg tablet 8.6 mg PO DAILY trazodone 100 mg tablet 100 mg PO BID lisinopril 20 mg tablet 20 mg PO DAILY citalopram [Celexa] 10 mg tablet 10 mg PO DAILY tizanidine [Zanaflex] 4 mg capsule 4 mg PO BEDTIME dicyclomine 10 mg capsule 10 mg PO QID Qty: 120 6RF aspirin 81 mg tablet,chewable 1 tab PO QAM Jardiance 25 mg tablet PO Print Language: Syriac
[2023-07-16 22:14] LABS: Appearance Urine Clear; Color Urine Yellow; Glucose Urine UA >=1000 mg/dL (Negative); Leukocyte Esterase Urine Small (1+) (Negative); Nitrite Urine Negative (Negative); PH 5.5 (5.0-9.0); Specific Gravity - Urine >= 1.030 (1.005-1.025); UMIC TRIGGER UACC YES; Urine Blood Small (1+) (Negative); Urine Ketones Trace mg/dL (Negative); Urine Protein Trace mg/dL (Neg-Trace)
[2023-07-16 22:41] VITALS: BP 141/74; PULSE 88; RESP 16; TEMP 37.2; O2SAT 97
[2023-07-16 22:43] LABS: Bacteria Urine None Seen (None Seen); Hyaline Casts Urine 0-2 /LPF (0-2); Squamous Epithelial Cell Urine 0-2 /HPF (0-2); UACC Culture Trigger YES; WBC Urine >50 /HPF (0-5)
[2023-07-16] MEDS: Phenazopyridine HCL 200 MG TABLET PO (23:18)
[2023-07-16] MEDS: cefuroxime axetiL 250 MG TABLET PO (23:18)
[2023-07-17 02:22] LABS: CT PCR NOT DETECTED (Not Detect.); NG PCR NOT DETECTED (Not Detect.)
== END 2023-07-16 23:25 | disposition home or self-care (01) ==
PROVIDERS: Physician Assistant; Emergency Provider Emergency Medicine Emergency Medical Services
DX: B37.2 Candidiasis of skin and nail (principal); N30.00 Acute cystitis without hematuria; R10.2 Pelvic and perineal pain; E11.9 Type 2 diabetes mellitus without complications; I10 Essential (primary) hypertension; E78.5 Hyperlipidemia, unspecified; Z79.899 Other long term (current) drug therapy; Z79.84 Long term (current) use of oral hypoglycemic drugs; Z79.02 Long term (current) use of antithrombotics/antiplatelets
CPT/HCPCS: 0353U; 81001; 87086; 87147; 99283; 99284

== ENCOUNTER → 2023-08-14 08:14 | Outpatient (REF) | payer MEDICARE, MEDICAID, SELFPAY ==
--- NOTE | ~2023-08-14 | NM_ITS ---
Exercise Myocardial perfusion study Indication: Precordial chest pain to evaluate for myocardial ischemia Technique: The patient was brought in for an exercise perfusion study on 08/14/2023. Patient performed exercise as per Dieudonne protocol and was injected 30 mCi of sestamibi was given intravenously one target HR was achieved. Images were obtained using the SPECT gamma camera interlaced with the gating device. Images were obtained in supine position. Resting perfusion study was performed on 10/06/2023. Patient was administered 30 mCi of sestamibi intravenously at rest. Images were then obtained in supine position. Images obtained with and without CT attenuation. Total DLP 162 mGy-cm. Images were processed with the software and compared side to side in short axis, horizontal long axis and vertical long axis views. Findings: The stress perfusion study showed non attenuated images show some thinning at the distal lateral wall of the LV myocardium. Remainder of the LV myocardium is normally perfused. Attenuation corrected images show some distal anterior wall of the LV myocardium. Is suggestion of left ventricular hypertrophy.. The gated study shows normal LV systolic function with calculated LVEF of greater than 70%. LV cavity is normal in size. The gated study shows normal systolic wall thickening and contraction of all segments. There is no transient ischemic dilation. Resting study shows no significant change in perfusion pattern compared to stress perfusion study. Gating at rest reveals normal systolic wall motion with ejection fraction at 69%. The findings are consistent with likely normal myocardial perfusion. NM/NM cardiolite stress test Impression: 1. Normal myocardial perfusion 2. Gated LVEF is 69% 3. Transient ischemic dilatation not present Stress EKG is not suggestive of ischemia
--- NOTE | 2023-08-14 08:19 | CA_ITS ---
Transthoracic Echocardiogram Patient (Last, First, Middle): Nataliya Brody, Gender: Female Date of : 1955 Age: 67 Procedure Date: 08/14/2023 Procedure Type: Transthoracic Echocardiogram Location: OP Height: 160.02 cm Weight: 99.79 kg BSA: 2.01 m2 Heart Rate: 82 bpm BP: 128 / 80 mmHg Managing Partner: BRYCE Morris MD: Ramón Morales MD Valve Fitter: Ricky Triana MD Symptoms: I25.10 - Atherosclerotic heart disease of [place] coronary artery without... Study Quality: Fair ECG Rhythm: Sinus Conclusions: - 1. Normal LV ejection fraction 55-60% with impaired relaxation filling pattern 2. Normal cardiac valvular Doppler 3. Upper limits of normal ascending aortic size 4. No gross pericardial effusion Findings Left Ventricle Normal left ventricular size, thickness, and systolic function. The visually estimated ejection fraction is between 55-60%. Spectral Doppler is indicative of an impaired relaxation filling pattern. E/E prime ratio is between 8 and 15 consistent with indeterminate filling pressures. Right Ventricle The right ventricle was not well visualized. Normal right ventricular cavity size. Atria The left atrium is normal in size. Interatrial shunt cannot be excluded. The right atrium was not well visualized. Aortic Valve The aortic valve structure and function is likely normal. There is no aortic valve stenosis. There is no aortic valve regurgitation. Mitral Valve Normal mitral valve structure and function. There is trace mitral valve regurgitation. There is no mitral valve stenosis. Tricuspid Valve Likely normal tricuspid valve structure and function. Tricuspid regurgitation envelope is inadequate for calculation of right ventricular systolic pressure. Normal right atrial pressure. Great Vessels The pulmonary artery was not well visualized. There is no dilatation of the ascending aorta measuring 3.60 cm. Venous The inferior vena cava was not well visualized. Pericardium/Pleural There is no evidence of pericardial effusion. Prior Study Comparison No prior study available for comparison. Measurements 2D Linear Measurements IVSd: 0.97 0.6-0.9/0.6-1.0 cm LVIDd: 3.04 3.9-5.3/4.2-5.9 cm LVIDd Index: 1.51 2.4-3.2/2.2-3.1 cm/m2 LVIDs: 2.25 2.0-3.6 cm LVPWd: 1.13 0.7-1.1 cm LA Diam: 2.60 2.7-3.8/3.0-4.0 cm LAIDs Index: 1.29 1.5-2.3 cm/m2 LV Mass: 112.34 67-162/88-224 g LV Mass Index: 55.89 43-95/49-115 g/m2 LVOT Diam: 2.10 3.0+(-)1.3 cm 2D Systolic Function EF 4C: 58.40 >55% EF 2C: 55.10 >55% EF BiP: 55.70 >55% Mitral Valve MV Pk E: 0.74 MV PK A: 1.04 MV Decel Time: 226.00 E/A: 0.70 E'Lateral: 6.64 E'Medial: 5.66 E/E' Med: 13.00 E/E' Lat: 11.10 PHT: 66.00 MVA PHT: 3.33 Decel Mason: 3.26 Aortic Valve AoV Pk Viraj: 1.22 AoV Mn Viraj: 0.87 AoV VTI: 0.24 AoV Pk Grad: 6.00 Aov Mn Grad: 3.00 LONG Cont.VTI: 2.90 LVOT LVOT Pk Viraj: 1.00 LVOT Mn Viraj: 0.70 LVOT VTI: 0.20 LVOT Pk Grad: 4.00 LVOT Mn Grad: 2.00 LVOT Diam: 2.10 LVOT Area: 3.46 Diastolic Function MV Pk E: 0.74 MV Pk A: 1.04 E/A: 0.70 E'Medial: 5.66 E/E' Med: 13.00 E' Laterial: 6.64 E/E' Lat: 11.10 Right Ventricle TAPSE (mm): 21.90 TVS' Viraj: 12.00 Tricuspid Valve TR Pk Viraj: 1.82 TR Pk Grad: 13.00 Great Vessels Aorta Sinus of Valsalva: 3.80 2.0-3.5 cm Ao Asc: 3.60 2.1-3.4 cm Pulmonary Valve PV Pk Viraj: 1.05 Peak PV Grad: 4.00 Updated in Other Vendor System with Status of Final Ricky Triana MD electronically signed on 08/15/2023 12:36:36 PM with status of Final
--- NOTE | 2023-08-14 08:19 | CA_ITS ---
Acquisition Time: 2023-08-14 09:19:58 Total Exercise Time: 00:05:30 Test Indications: Syncope CHEST PAIN Medications: SEE H Protocol: SIMRAN Max HR: 137 BPM 88% of Pred: 155 BPM Max BP: 130/072 mmHG Max Work Load: 6.2 METS Exercise stress test exercise 5 min 30 sec of Simran protocol achieving 85% MPHR and 30 seconds of a slow walk to maintain heart rate with moderate SOB, no chest discomfort, without arrhythmias, with normotensive repsonse to exercise, without EKG changes. Nuclear images pending. Test reviewed with Dr. Triana Referred By: Ramón Morales Overread By: Akila Guzman
--- NOTE | 2023-08-14 08:19 | HM_ITS ---
Conclusion: 1. Patient was monitored for total period of 7 days and 12 hours 2. Baseline was normal sinus rhythm with average heart of 81 beats per minute 3. No significant arrhythmias or pauses noted 4. Patient reported see symptoms correlating with sinus rhythm, 1 of them dizziness MTDD
== END ==
LOC: HO.CARD 08:14
PROVIDERS: PCP Internal Medicine Geriatric Medicine; Visit Provider Internal Medicine
DX: R07.2 Precordial pain (principal); I25.10 Atherosclerotic heart disease of native coronary artery without angina pectoris; R55 Syncope and collapse; R00.2 Palpitations
CPT/HCPCS: 78452; 93017; 93242; 93306; A9500; J0280; J2785

== ENCOUNTER → 2023-08-14 08:19 | Outpatient (BNV) | payer MEDICARE, MEDICAID, SELFPAY | PROVIDERS: PCP Internal Medicine Geriatric Medicine; Visit Provider Nurse Practitioner | DX: R07.2 Precordial pain (principal) | CPT/HCPCS: 78452; 93016; 93018; 93244; 93306 ==

== ENCOUNTER 2023-08-20 08:30 | Emergency (ER) | payer MEDICARE, MEDICAID, SELFPAY ==
[2023-08-20 08:42] VITALS: BP 139/75; BP 140/80; PULSE 86; RESP 16; TEMP 37; O2SAT 95; O2SAT 96; BMI 36.6
--- NOTE | 2023-08-20 08:49 | ED.DIZZY ---
HPI - Dizziness General Chief Complaint: Dizziness Stated Complaint: dizziness Time Seen by Provider: 08/20/23 08:34 Source: patient, EMS, RN notes reviewed and old records reviewed Mode of arrival: EMS History of Present Illness HPI Narrative: 67-year-old female with a past medical history of diabetes, [place], anxiety, HLD, HTN, thyroid CA, presenting to the ED via EMS complaining of lightheadedness s/p hands becoming cold after being outside cleaning her car off this morning. Reports mild headache. Denies chest pain, shortness of breath, room spinning dizziness, nausea/vomiting, focal weakness, fall MD elicited complaint: lightheadedness Related Data Home Medications Medication Instructions Recorded Confirmed amlodipine 5 mg tablet 5 mg PO DAILY 05/18/20 06/30/23 atorvastatin 20 mg tablet 40 mg PO DAILY 05/18/20 06/30/23 bupropion HCl 150 mg 24 hr tablet, 150 mg PO QAM 05/18/20 06/30/23 extended release cholecalciferol (vitamin D3) 50 50 mcg PO DAILY 05/18/20 06/30/23 mcg (2,000 unit) chewable tablet citalopram 10 mg tablet (Celexa) 10 mg PO DAILY 05/18/20 06/30/23 docusate sodium 100 mg capsule 100 mg PO DAILY 05/18/20 06/30/23 levothyroxine 137 mcg tablet 137 mcg PO DAILY 05/18/20 06/30/23 lisinopril 20 mg tablet 20 mg PO DAILY 05/18/20 06/30/23 lorazepam 1 mg tablet 1 mg PO DAILY PRN Anxiety 05/18/20 06/30/23 sennosides 8.6 mg tablet (Senna 8.6 mg PO DAILY 05/18/20 06/30/23 Lax) tizanidine 4 mg capsule (Zanaflex) 4 mg PO BEDTIME 05/18/20 06/30/23 trazodone 100 mg tablet 100 mg PO BID 05/18/20 06/30/23 tramadol 50 mg tablet 1 tab PO Q8H PRN Pain 02/07/21 06/30/23 prazosin 1 mg capsule 1 cap PO BEDTIME 08/31/21 06/30/23 aspirin 81 mg chewable tablet 1 tab PO QAM 06/30/23 06/30/23 empagliflozin 25 mg tablet mg PO 06/30/23 06/30/23 (Jardiance) metformin 500 mg tablet,extended 1,000 mg PO BID 06/30/23 06/30/23 release 24 hr Previous Rx's Medication Instructions Recorded dicyclomine 10 mg capsule 10 mg PO QID #120 caps 10/02/21 sucralfate 1 gram tablet (Carafate) 2 g (2 x 1 gram) PO DAILY #60 tabs 01/24/23 cefuroxime axetil 250 mg tablet 250 mg PO Q12H 5 days #10 tabs 07/16/23 nystatin 100,000 unit/gram topical 1 appl topical BID Over affected 07/16/23 ointment area #30 grams phenazopyridine 200 mg tablet 200 mg PO TID PRN Burning with 07/16/23 (Pyridium) urination 3 days #9 tabs omeprazole 40 mg capsule,delayed 40 mg PO QAM #30 caps 08/13/23 release cefuroxime axetil 250 mg tablet 250 mg PO BID 7 days #14 tabs 08/20/23 Allergies Allergy/AdvReac Type Severity Reaction Status Date / Time No Known Allergies Allergy Mild NONE Verified 06/30/23 08:27 Review of Systems Review of Systems: Constitutional: No Fever, No Chills ENT/Mouth: No Ear Pain, No Nasal Congestion, No sore throat, No Rhinorrhea, No Swallowing Difficulty Cardiovascular: No Chest Pain, No SOB Respiratory: No Cough Gastrointestinal: No Nausea, No Vomiting, No Diarrhea, No Constipation, No Abdominal pain Genitourinary: No Dysuria, No Urinary Frequency, No Hematuria, No Flank Pain Musculoskeletal: No joint pain, No Myalgias, No Joint Swelling, + called hands Skin: No Skin Lesions, No rash Neuro: No Weakness, No Numbness, No Paresthesias, + lightheadedness, +ANDERSON Yes all other systems are reviewed and are negative Constitutional: Constitutional: Reports as per HPI Neurologic: Denies Abnormal speech present PMFSH Past Medical History Attestation statement: The following information was validated with the patient. Source: old records reviewed Onset Date is defined in the Problem List Problems that require an onset date and time if occurred within 24 hrs of arrival to the ED Aortic Dissection and Rupture; Neurologic impairment; Cardiopulmonary Arrest; Endotracheal Intubation; Insertion or Replacement of Mechanical Circulatory Assist Device Medical History Diabetes [place] on CPAP GERD (gastroesophageal reflux disease) Anxiety and depression Elevated cholesterol Osteoarthritis of left knee Hypertension Hx of thyroid cancer Left knee pain Surgical History History of endoscopy History of colonoscopy History of thyroidectomy History of back surgery Family History Family History Mother Leukemia Diabetes Heart attack Father Esophageal adenocarcinoma Sister Breast cancer Brother Bone cancer Esophageal adenocarcinoma Family/Other Ovarian cancer Brother Prostate cancer Paternal Grandmother Melanoma Social History Social History Alcohol intake: never Patient Tobacco Use Status: Never used Tobacco Advance Directives: No Advance Directives Information Provided: Yes Physical Exam Vital Signs: Vital Signs: Last Vital Signs Temp 98.6 F 08/20/23 08:42 Pulse 93 08/20/23 11:37 Resp 16 08/20/23 08:42 BP 135/77 08/20/23 11:37 Pulse Ox 95 08/20/23 08:42 O2 Del Method Room Air 08/20/23 08:42 BMI result Body Mass Index 36.6 Const: General: cooperative, healthy appearing and no acute distress Orientation/consciousness: patient oriented x3 Limitations: no limitations HEENT: Head: Yes normal to inspection and Yes atraumatic Ears: hearing grossly normal bilaterally General nose exam: Normal external nose present Face and sinus: Yes normal facial exam Eyes: General: appearance normal, both eyes and all related structures EOM: EOMs intact bilaterally Neck: Neck: Yes normal visual inspection and Yes no meningeal signs Resp: Effort & Inspection: normal respiratory effort and no respiratory distress Auscultation: clear to auscultation bilaterally, no crackles and no wheezes Cardio: Rate: regular rate Heart sounds: S1 normal heart sound present and S2 normal heart sound present GI: Inspection: Yes normal to inspection Palpation (GI): Soft to palpation, nontender, no guarding and not rigid Skin: Rashes: no rashes Wounds: no wounds Neuro: General: patient oriented x3, gait normal, tone normal, moves all extremities, no meningeal signs, no focal motor deficits and CN's II-XI intact bilaterally Cranial nerves: Yes CN's II-XII intact bilaterally and Yes Bilaterally intact EOM present Cognition (Neuro): normal cognition Speech: No Abnormal speech present Gait exam (Neuro): Normal gait present Motor exam (neuro): 5/5 motor strength present throughout and no tremor noted Extrem: General: Yes normal to inspection and Yes no pedal edema Course Course Course Narrative: -labs reassuring. Initial troponin negative, will obtain 3 hour repeat -1418--orthostatic vital signs negative. Troponin x2 negative, NV unlikely -UA contaminated however with evidence of infection > will initiate patient on p.o. Ceftin -1445--COVID and flu negative Results discussed with patient including worrisome signs and symptoms and strict return precautions, and when to return to the emergency department. They verbalized understanding and feel safe for discharge at this time. Medical Decision Making Medical Decision Making [facility] Narrative: 67-year-old female with a past medical history of diabetes, [place], anxiety, HLD, HTN, thyroid CA, presenting to the ED via EMS complaining of lightheadedness s/p hands becoming cold after being outside cleaning her car off this morning. On exam vital signs stable, NAD, nontoxic appearing, no focal neuro deficits, lungs CTA, bilateral hands WNL, neurovascularly intact, no evidence of frostbite. Concern for atypical ACS vs viral syndrome vs metabolic abnormalities. Low suspicion for SAH, dissection, PE Plan: EKG, labs, UA, orthostatics, re-evaluate Please refer to course for remaining clinical decision making, interpretation of labs/imaging results, and discussions with consultants and/or family members. Differential Diagnosis Differential Diagnoses: The differential diagnosis associated with the presentation includes As above Admission/Observation Consideration of admission/observation: Escalation of care including admission/observation considered Lab Data [facility] Lab Attestation statement: I reviewed the patient's lab results. 08/20/23 09:52 08/20/23 09:52 Labs: Lab Results 08/20/23 08/20/23 08/20/23 Range/Units 09:52 13:40 13:47 WBC 11.8 H (4.8-10.8) X10*3/uL RBC 4.31 (4.20-5.50) X10*6/uL Hgb 13.6 (12.0-16.0) g/dl Hct 41.1 (37.0-47.0) % MCV 95.4 (80.0-98.0) fL MCH 31.6 (27.0-33.0) pg MCHC 33.1 (31.0-35.0) g/dl RDW 13.6 (11.0-16.0) % Plt Count 337 (160-400) X10*3/uL MPV 9.5 (9.4-12.3) fL Immature Gran % (Auto) 0.6 H (0.0-0.4) % Neut % (Auto) 70.5 (45-73) % Lymph % (Auto) 20.8 (20-40) % O'Brien % (Auto) 6.2 (2-11) % Eos % (Auto) 1.4 (0-4) % Baso % (Auto) 0.5 (0-2) % Lymph # (Auto) 2.5 (1.2-4.9) X10*3/uL O'Brien # (Auto) 0.7 (0.1-1.2) X10*3/uL Eos # (Auto) 0.2 (0.0-0.4) X10*3/uL Baso # (Auto) 0.1 (0.0-0.2) X10*3/uL Abs Immat Gran (auto) 0.07 H (0.00-0.03) X10*3/uL Absolute Neuts (auto) 8.3 (2.0-8.3) x10*3/uL Absolute Nucleated RBC 0.000 (0.0-0.012) X10*3/uL Nucleated RBC % (auto) 0.0 (0.0-0.2) /100WBC Sodium 139 (135-145) mmol/L Potassium 3.9 (3.3-5.1) mmol/L Chloride 108 (96-108) mmol/L Carbon Dioxide 22 (22-29) mmol/L Anion Gap 13 (12-20) BUN 15 (9-16) mg/dL Creatinine 0.85 (0.5-1.4) mg/dL Estim Creat Clear Calc 77.2 Estimated GFR > 60 Random Glucose 165 H (60-115) mg/dL Calcium 8.9 D (8.4-10.2) mg/dL Magnesium 1.8 (1.6-2.6) mg/dL Total Bilirubin 0.3 (0.0-1.0) mg/dL Direct Bilirubin 0.1 (0.0-0.5) mg/dL AST 11 (5-31) U/L ALT 11 (0-31) U/L Alkaline Phosphatase 78 (39-117) U/L Troponin I High Sens < 2.7 < 2.7 (<3.5-17.0) ng/L Total Protein 6.7 (6.5-8.0) g/dL Albumin 3.6 (3.5-5.0) g/dL Urine Color Yellow Urine Appearance Cloudy Urine pH 5.5 (5.0-9.0) Ur Specific Baker 1.020 (1.005-1.025) Urine Protein Negative (Neg-Trace) mg/dL Urine Glucose (UA) 250 H (Negative) mg/dL Urine Ketones Negative (Negative) mg/dL Urine Blood Small (1+) H (Negative) Urine Nitrite Negative (Negative) Ur Leukocyte Esterase Large (3+) H (Negative) Urine RBC 3-5 H (0-2) /HPF Urine WBC >50 H (0-5) /HPF Ur Squamous Epith Cells 6-10 (0-2) /HPF Urine Bacteria Trace (None Seen) Hyaline Casts 0-2 (0-2) /LPF COVID-19 (KARLY) Negative (Negative) COVID-19 Clin Com See Note Influenza Type A (PREET) Negative (Negative) Influenza Type B (PREET) Negative (Negative) Influenza A & B Note See Note Independent Interpretation I performed an independent interpretation of an: EKG (My interpretation EKG normal sinus rhythm rate of 83. QRS 86. QTC 434. Nonspecific T-wave abnormality present in lateral leads. No STEMI) Radiology Impression Discussion of test interpretation with radiology: I have reviewed the radiologist's reading. Independent Historian Clinical information obtained from an independent historian. History obtained from or confirmed by: EMS External Record Review External record reviewed: Inpatient record, Office record, Outpatient record, Prior outpatient labs, Prior outpatient radiology, Primary care record and Outside ED record Tests considered The following testing was considered but not selected: As above Chronic Conditions Patient?s care impacted by: Hypertension and Other Discharge Plan Discharge Clinical Impression: Acute UTI, Lightheadedness Patient Disposition: Home, Self-Care Instructions: Urinary Tract Infection in Women (DC), Lightheadedness (ED) Additional Instructions: You have a urinary tract infection. Please take antibiotics prescribed Follow-up closely with her doctor. Make sure you are staying hydrated If symptoms persist or worsen return to the emergency department Tienes matt infecci?n del tracto urinario. Por favor tome los antibi?ticos recetados. Lux un seguimiento estrecho con burdick m?dico. Aseg?rate de mantenerte hidratado. Si los s?ntomas persisten o empeoran, regrese al departamento de emergencias. Prescriptions: New cefuroxime axetil 250 mg tablet 250 mg PO BID 7 Days Qty: 14 0RF No Action sucralfate [Carafate] 1 gram tablet 2 g PO DAILY Qty: 60 0RF omeprazole 40 mg capsule,delayed release(DR/EC) 40 mg PO QAM Qty: 30 6RF tramadol 50 mg tablet 1 tab PO Q8H PRN (Reason: Pain) metformin 500 mg tablet extended release 24 hr 1,000 mg PO BID prazosin 1 mg capsule 1 cap PO BEDTIME cefuroxime axetil 250 mg tablet 250 mg PO Q12H 5 Days Qty: 10 0RF phenazopyridine [Pyridium] 200 mg tablet 200 mg PO TID PRN (Reason: Burning with urination) 3 Days Qty: 9 0RF nystatin 100,000 unit/gram ointment 1 appl topical BID Qty: 30 0RF levothyroxine 137 mcg tablet 137 mcg PO DAILY cholecalciferol (vitamin D3) 50 mcg (2,000 unit) tablet,chewable 50 mcg PO DAILY docusate sodium 100 mg capsule 100 mg PO DAILY lorazepam 1 mg tablet 1 mg PO DAILY PRN (Reason: Anxiety) amlodipine 5 mg tablet 5 mg PO DAILY atorvastatin 20 mg tablet 40 mg PO DAILY bupropion HCl 150 mg tablet extended release 24 hr 150 mg PO QAM sennosides [Senna Lax] 8.6 mg tablet 8.6 mg PO DAILY trazodone 100 mg tablet 100 mg PO BID lisinopril 20 mg tablet 20 mg PO DAILY citalopram [Celexa] 10 mg tablet 10 mg PO DAILY tizanidine [Zanaflex] 4 mg capsule 4 mg PO BEDTIME dicyclomine 10 mg capsule 10 mg PO QID Qty: 120 6RF aspirin 81 mg tablet,chewable 1 tab PO QAM Jardiance 25 mg tablet PO Referrals: [facility] [Primary Care Provider] - 2 days Print Language: French
--- NOTE | 2023-08-20 08:50 | ECG_ITS ---
Test Reason : DIZZY Blood Pressure : / mmHG Vent. Rate : 083 BPM Atrial Rate : 083 BPM P-R Int : 180 ms QRS Dur : 086 ms QT Int : 370 ms P-R-T Axes : 030 -10 001 degrees QTc Int : 434 ms Normal sinus rhythm Minimal voltage criteria for LVH, may be normal variant ( R in aVL ) Cannot rule out Anterior infarct (cited on or before 04-APR-2019) Abnormal ECG When compared with ECG of 04-APR-2019 10:35, No significant changes seen Referred By: Vonda Shankar Electronically Signed By:YVON JORGE
[2023-08-20 09:55] LABS: MANUAL DIFF FLAG NO
[2023-08-20 09:58] LABS: Basophils Absolute Auto 0.1 X10*3/uL (0.0-0.2); Basophils Percent Auto 0.5 % (0-2); Eosinophils Absolute Auto 0.2 X10*3/uL (0.0-0.4); Eosinophils Percent Auto 1.4 % (0-4); Hematocrit 41.1 % (37.0-47.0); Hemoglobin 13.6 g/dl (12.0-16.0); Imm Gran Abs Auto 0.07 X10*3/uL (0.00-0.03); Imm Gran Pct Auto 0.6 % (0.0-0.4); Lymphocytes Absolute Auto 2.5 X10*3/uL (1.2-4.9); Lymphocytes Percent Auto 20.8 % (20-40); Mean Corpuscular HGB Conc 33.1 g/dl (31.0-35.0); Mean Corpuscular Hemoglobin 31.6 pg (27.0-33.0); Mean Corpuscular Volume 95.4 fL (80.0-98.0); Mean Platelet Volume 9.5 fL (9.4-12.3); Monocytes Absolute Auto 0.7 X10*3/uL (0.1-1.2); Monocytes Percent Auto 6.2 % (2-11); Neutrophils Absolute Auto 8.3 x10*3/uL (2.0-8.3); Neutrophils Percent Auto 70.5 % (45-73); Platelet Count 337 X10*3/uL (160-400); Red Blood Count 4.31 X10*6/uL (4.20-5.50); Red Cell Distribution Width 13.6 % (11.0-16.0); White Blood Count 11.8 X10*3/uL (4.8-10.8)
[2023-08-20 10:13] LABS: Alanine Aminotransferase 11 U/L (0-31); Albumin Level 3.6 g/dL (3.5-5.0); Alkaline Phosphatase 78 U/L (39-117); Anion Gap 13 (12-20); Aspartate Amino Transferase 11 U/L (5-31); Bilirubin Direct 0.1 mg/dL (0.0-0.5); Bilirubin Total 0.3 mg/dL (0.0-1.0); Blood Urea Nitrogen 15 mg/dL (9-16); Calcium 8.9 mg/dL (8.4-10.2); Carbon Dioxide 22 mmol/L (22-29); Chloride 108 mmol/L (96-108); Creatinine Clr Calc Pharmacy 77.2; Estimated Glomerular Filt Rate > 60; Glucose Random 165 mg/dL (60-115); Magnesium 1.8 mg/dL (1.6-2.6); Potassium 3.9 mmol/L (3.3-5.1); Sodium 139 mmol/L (135-145); Total Protein 6.7 g/dL (6.5-8.0)
[2023-08-20 10:21] LABS: Troponin-I High Sensitivity < 2.7 ng/L (<3.5-17.0)
--- NOTE | 2023-08-20 11:21 | PC.NURSE ---
patient ate breakfast, ambulates to bathroom with steady gait. plan for repeat troponin.
[2023-08-20 11:35] VITALS: BP 143/78; BP 147/76; PULSE 88; PULSE 89
[2023-08-20 11:37] VITALS: BP 135/77; PULSE 93
[2023-08-20 13:55] LABS: Appearance Urine Cloudy; Color Urine Yellow; Glucose Urine UA 250 mg/dL (Negative); Leukocyte Esterase Urine Large (3+) (Negative); Nitrite Urine Negative (Negative); PH 5.5 (5.0-9.0); UMIC TRIGGER UACC YES; Urine Blood Small (1+) (Negative); Urine Ketones Negative (Negative); Urine Protein Negative (Neg-Trace)
[2023-08-20 14:03] LABS: Bacteria Urine Trace (None Seen); Hyaline Casts Urine 0-2 /LPF (0-2); UACC Culture Trigger YES; WBC Urine >50 /HPF (0-5)
--- NOTE | 2023-08-20 14:07 | PC.NURSE ---
ambulated to the bathroom with this RN for urine sample. awaiting results from repeat troponin
[2023-08-20 14:14] LABS: Troponin-I High Sensitivity < 2.7 ng/L (<3.5-17.0)
[2023-08-20 14:27] LABS: COVID-19 Test Negative (Negative); IDNOW Serial# 58CA691E; IDNOW Serial# 6674DD1D; Influenza A Negative (Negative); Influenza B2 Negative (Negative)
[2023-08-20 14:51] VITALS: BP 143/75; PULSE 89; RESP 16; TEMP 36.8; O2SAT 100
[2023-08-20] MEDS: cefuroxime axetiL 250 MG TABLET PO (14:51)
== END 2023-08-20 14:56 | disposition home or self-care (01) ==
PROVIDERS: Physician Assistant; Emergency Provider Emergency Medicine
DX: N39.0 Urinary tract infection, site not specified (principal); R42 Dizziness and giddiness; Z11.52 Encounter for screening for COVID-19; E11.9 Type 2 diabetes mellitus without complications; I10 Essential (primary) hypertension; E78.5 Hyperlipidemia, unspecified; Z79.84 Long term (current) use of oral hypoglycemic drugs; Z79.82 Long term (current) use of aspirin; Z79.899 Other long term (current) drug therapy
CPT/HCPCS: 36415; 80048; 80076; 81001; 83735; 84484; 85025; 87086; 87147; 87502; 87635; 93005; 99283; 99285

== ENCOUNTER → 2023-08-20 08:50 | Outpatient (BNV) | payer MEDICARE, MEDICAID, SELFPAY | PROVIDERS: Emergency Provider Emergency Medicine; Visit Provider Internal Medicine | DX: R94.31 Abnormal electrocardiogram [ECG] [EKG] (principal) | CPT/HCPCS: 93010 ==

== ENCOUNTER 2023-09-26 15:02 | Outpatient (AMB) | payer MEDICARE, MEDICAID, SELFPAY ==
--- NOTE | 2023-09-26 15:09 | MHC.OFFVIS ---
Intake Vital Signs 09/26/23 15:10 Height 5 ft 5 in Weight 220 lb BMI 36.6 BP 147/83 H Blood Pressure Location Lt brachial Position Sitting Pulse 84 Intake Visit Reasons: GERD follow up Intake Note: Patient is seen in office for follow up visit, GERD. Pt c/o: continued acid reflux at night time after heavy meals, sometimes diarrhea denies nausea, vomit, constipation Copy Operator Required: Yes Accompanied by: Family/Other Allergies No Known Allergies Allergy (Mild, Verified 06/30/23 08:27) NONE HPI GERD follow up HPI Details Assessment & Plan (1) GERD (gastroesophageal reflux disease): ?Code(s): K21.9 - Gastro-esophageal reflux disease without esophagitis ?Plan: [place] #[employer]i Live She is feeling better, the epigastric pain has resolved. She completed and is now off of the carafate, but she is unsure what her current omeprazole strength is. I ask her to check and make sure she is getting 40mg. I had increased it from 20mg. She has no CIC or diarrhea, and is now satisfied with her GI regimen. ROV 3 mos. (2) Dyspepsia: ?Code(s): R10.13 - Epigastric pain (3) Irritable bowel syndrome with diarrhea: ?Code(s): K58.0 - Irritable bowel syndrome with diarrhea. TODAY'S VISIT [place] #BETHANY TRanslates per pt request Doing well on her meds with only occasional diarrhea. Her current medication is omeprazole 40 mg once a day, senna as needed for constipation, Colace, dicyclomine 4 times a day as needed. Not due for colonoscopy until 2026, last 2021 with Catherine cordova 5 years. Return office visit in 6 months [facility] Medical History Diabetes [place] on CPAP GERD (gastroesophageal reflux disease) Anxiety and depression Elevated cholesterol Osteoarthritis of left knee Hypertension Hx of thyroid cancer Left knee pain Surgical History History of endoscopy History of colonoscopy History of thyroidectomy History of back surgery Family History Mother Leukemia Diabetes Heart attack Father Esophageal adenocarcinoma Sister Breast cancer Brother Bone cancer Esophageal adenocarcinoma Family/Other Ovarian cancer Brother Prostate cancer Paternal Grandmother Melanoma Social History Alcohol intake: never Patient Tobacco Use Status: Never used Tobacco Review of Systems Const Denies fatigue, Denies fever(s), Denies night sweats, Denies poor appetite and Denies weight loss ENT Reports Normal hearing present, Denies dental pain, Denies dysphagia, Denies hearing loss, Denies mouth pain, Denies odynophagia, Denies throat swelling, Denies tongue swelling and Reports other (Dentition adequate) Card Reports no additional complaints Resp Reports no additional complaints GI Details: Denies abdominal pain, Denies melena, Denies bloating, Denies hematochezia, Reports constipation, Denies GI cramping, Denies dysphagia, Denies excessive flatus, Denies early satiety, Reports heartburn, Reports diarrhea, Denies nausea, Denies odynophagia, Denies vomiting and Denies hematemesis Skin/Breast Denies pruritus, Denies lesions, Denies rash and Denies jaundice Neuro Reports Normal hearing present and Denies Abnormal speech present Endo Denies fatigue Aller/Immun Denies throat swelling and Denies tongue swelling Physical Exam Vital Signs: Last Vital Signs Pulse 84 09/26/23 15:10 BP 147/83 H 09/26/23 15:10 BMI result Body Mass Index 36.6 Const General: cooperative, no acute distress, well developed and well groomed Nutritional Appearance: well nourished and obese Orientation/consciousness: oriented to person, oriented to place and oriented to time Limitations: language barrier HEENT Head: Yes normocephalic and Yes atraumatic Eyes General: appearance normal, both eyes and all related structures Pupils: Equal, round and reactive pupils present Neck Neck: Yes normal visual inspection and Yes no lymphadenopathy Thyroid: Thyroid normal Resp Effort & Inspection: normal respiratory effort and able to speak in complete sentences Auscultation: clear to auscultation bilaterally Cardio Rate: regular rate Rhythm: regular rhythm Heart sounds: Normal, physiologic split S2 sound present Peripheral pulses: radial pulses present and posterior tibial pulses present GI Inspection: No distended, No Abdominal panniculus present and Yes obesity Palpation (GI): Soft to palpation, nontender, no guarding, not rigid and No hepatosplenomegaly present Percussion: Yes normal to percussion Auscultation: normal bowel sounds Rectal Exam - Female: deferred Skin General skin exam: no rashes or lesions noted, turgor normal, skin not dry, no jaundice, No spider nevi and no striae Rashes: no rashes Nails: normal Neuro General: oriented to person, oriented to place and oriented to time Cranial nerves: Yes Equal, round and reactive pupils present and Yes Normal hearing present Speech: No Abnormal speech present Extrem General: Yes normal to inspection, No clubbing, No cyanosis and No edema Psych Appearance: grossly normal and well kempt Mental Status: mental status grossly normal Speech and movement: Normal speech and movement present Affect: normal affect Attitude: cooperative Thought process: Normal thought process present and not confabulating Thought content: Normal thought content present Insight: Limited insight present (Psych) Judgement: Limited judgement present (Psych) Assessment & Plan Assessment & Plan (1) Irritable bowel syndrome with diarrhea: Code(s): K58.0 - Irritable bowel syndrome with diarrhea (2) GERD (gastroesophageal reflux disease): Code(s): K21.9 - Gastro-esophageal reflux disease without esophagitis Plan [place] #DTR TRanslates per pt request Doing well on her meds with only occasional diarrhea. Her current medication is omeprazole 40 mg once a day, senna as needed for constipation, Colace, dicyclomine 4 times a day as needed. Not due for colonoscopy until 2026, last 2021 with Catherine cordova 5 years. Return office visit in 6 months Medications: New docusate sodium 100 mg PO DAILY 30 caps 6RF Changed From sennosides 8.6 mg PO DAILY To sennosides (Senna Lax) 17.2 mg (2 x 8.6 mg) PO DAILY 60 tabs 6RF Refilled dicyclomine 10 mg PO QID 120 caps 6RF K58.0 - Irritable bowel syndrome with diarrhea omeprazole 40 mg PO QAM 30 caps 6RF K21.9 - Gastro-esophageal reflux disease without esophagitis Discontinued sucralfate Discontinued Reason: Doctor's Order 2 grams (2 x 1 gram) PO DAILY 60 tabs 0RF Coding Level of Care Code Est Pt Level 3 (44024) Diagnoses Irritable bowel syndrome with diarrhea K58.0 GERD (gastroesophageal reflux disease) K21.9
[2023-09-26 15:10] VITALS: BP 147/83; PULSE 84; BMI 36.6
== END 2023-09-26 15:27 | disposition home or self-care (01) ==
PROVIDERS: PCP Internal Medicine Geriatric Medicine; Visit Provider Nurse Practitioner
DX: K58.0 Irritable bowel syndrome with diarrhea (principal); K21.9 Gastro-esophageal reflux disease without esophagitis
CPT/HCPCS: 99213

== ENCOUNTER → 2023-09-26 15:02 | Outpatient (BNVA) | payer MEDICARE, MEDICAID, SELFPAY | PROVIDERS: PCP Internal Medicine Geriatric Medicine; Visit Provider Nurse Practitioner | DX: K58.0 Irritable bowel syndrome with diarrhea (principal); K21.9 Gastro-esophageal reflux disease without esophagitis | CPT/HCPCS: 99212 ==

== ENCOUNTER 2023-10-27 08:59 | Outpatient (REF) | payer MEDICARE, MEDICAID, SELFPAY ==
[2023-10-27 11:51] LABS: MANUAL DIFF FLAG NO
[2023-10-27 12:06] LABS: Basophils Percent Auto 0.4 % (0-2); Eosinophils Absolute Auto 0.2 X10*3/uL (0.0-0.4); Eosinophils Percent Auto 1.9 % (0-4); Hematocrit 42.6 % (37.0-47.0); Hemoglobin 14.1 g/dl (12.0-16.0); Imm Gran Abs Auto 0.04 X10*3/uL (0.00-0.03); Imm Gran Pct Auto 0.4 % (0.0-0.4); Lymphocytes Absolute Auto 3.8 X10*3/uL (1.2-4.9); Lymphocytes Percent Auto 37.9 % (20-40); Mean Corpuscular HGB Conc 33.1 g/dl (31.0-35.0); Mean Corpuscular Hemoglobin 31.2 pg (27.0-33.0); Mean Corpuscular Volume 94.2 fL (80.0-98.0); Mean Platelet Volume 10.1 fL (9.4-12.3); Monocytes Absolute Auto 0.7 X10*3/uL (0.1-1.2); Monocytes Percent Auto 6.5 % (2-11); Neutrophils Absolute Auto 5.4 x10*3/uL (2.0-8.3); Neutrophils Percent Auto 52.9 % (45-73); Platelet Count 376 X10*3/uL (160-400); Red Blood Count 4.52 X10*6/uL (4.20-5.50); Red Cell Distribution Width 13.9 % (11.0-16.0); White Blood Count 10.1 X10*3/uL (4.8-10.8)
[2023-10-27 12:45] LABS: Estimated Average Glucose 146 mg/dL; Hemoglobin A1c % 6.7 % (<6.0)
[2023-10-27 13:03] LABS: Alanine Aminotransferase 11 U/L (0-31); Alkaline Phosphatase 74 U/L (39-117); Anion Gap 11 (12-20); Aspartate Amino Transferase 12 U/L (5-31); Bilirubin Total 0.4 mg/dL (0.0-1.0); Blood Urea Nitrogen 11 mg/dL (9-16); Calcium 9.5 mg/dL (8.4-10.2); Carbon Dioxide 29 mmol/L (22-29); Chloride 105 mmol/L (96-108); Estimated Glomerular Filt Rate > 60; Free T4 (Free Thyroxine) 0.99 ng/dL (0.71-1.85); Glucose Random 157 mg/dL (60-115); Sodium 141 mmol/L (135-145); Thyroid Stimulating Hormone 2.18 uIU/mL (0.32-4.0); Total Protein 7.3 g/dL (6.5-8.0)
[2023-10-27 13:38] LABS: Cortisol Random 16.1 ug/dL
[2023-10-28 08:22] LABS: Follicle Stimulating Hormone 17.3 mIU/mL; Lutenizing Hormone 9.6 mIU/mL
[2023-10-31 04:49] LABS: Adrenocorticotropic Hormone 26 pg/mL (6-50)
[2023-10-31 22:38] LABS: Estradiol Ultra Sensitive 9 pg/mL
[2023-11-02 13:39] LABS: IGF-1 (Somatomedin C) 102 ng/mL (41-279); IGF-1 Z Score (Female) -0.3 SD (-2.0 - +2.0)
== END 2023-10-27 09:00 | disposition home or self-care (01) ==
LOC: HO.HHCL 08:59
PROVIDERS: Visit Provider Student in an Organized Health Care Education/Training Program
DX: E23.6 Other disorders of pituitary gland (principal); R42 Dizziness and giddiness; E74.89 Other specified disorders of carbohydrate metabolism
CPT/HCPCS: 36415; 80053; 82024; 82533; 82670; 83001; 83002; 83036; 84305; 84439; 84443; 85025

== ENCOUNTER 2024-01-09 17:31 | Outpatient (REF) | payer MEDICARE, MEDICAID, SELFPAY ==
[2024-01-09 17:40] LABS: Appearance Urine Cloudy; Color Urine Yellow; Glucose Urine UA >=1000 mg/dL (Negative); Leukocyte Esterase Urine Negative (Negative); Nitrite Urine Negative (Negative); Specific Gravity - Urine >= 1.030 (1.005-1.025); UMIC TRIGGER UACC YES; Urine Blood Small (1+) (Negative); Urine Ketones Negative (Negative); Urine Protein Negative (Neg-Trace)
[2024-01-09 17:50] LABS: Bacteria Urine None Seen (None Seen); Hyaline Casts Urine 0-2 /LPF (0-2); RBC Urine 0-2 /HPF (0-2); WBC Urine 0-5 /HPF (0-5)
[2024-01-09 17:52] LABS: Other Crystals Urine Present
== END 2024-01-09 17:32 | disposition home or self-care (01) ==
LOC: HO.HHCLNP 17:31
PROVIDERS: Visit Provider Nurse Practitioner Primary Care
DX: R30.0 Dysuria (principal)
CPT/HCPCS: 81001

== ENCOUNTER 2024-01-14 18:18 | Outpatient (REF) | payer MEDICARE, MEDICAID, SELFPAY ==
[2024-01-21 20:44] LABS: HPV mRNA E6/E7 rflx Not Detected (Not Detected)
== END 2024-01-14 18:19 | disposition home or self-care (01) ==
LOC: HO.HHCLNP 18:18
PROVIDERS: Visit Provider Advanced Practice Midwife
DX: Z12.4 Encounter for screening for malignant neoplasm of cervix (principal)
CPT/HCPCS: 87624; 88142

== ENCOUNTER 2024-01-16 12:36 | Outpatient (REF) | payer MEDICARE, MEDICAID, SELFPAY ==
--- NOTE | ~2024-01-16 | US_ITS ---
EXAMINATION: US RETROPERITONEAL LIMITED (RENAL ONLY) CLINICAL INFORMATION: Hematuria, current UTI. COMPARISON: CT abdomen and pelvis 04/04/2019. TECHNIQUE: Real-time imaging of the kidneys. FINDINGS: RIGHT KIDNEY: 10.1 x 4.5 x 5.1 cm (SAG x AP x TRV). The kidney is normal in size, contour, and echogenicity. Renal cortical thickness is normal. No calculi or focal parenchymal lesions. No hydronephrosis. LEFT KIDNEY: 10.6 x 4.8 x 4.5 cm (SAG x AP x TRV). The kidney is normal in size, contour, and echogenicity. Renal cortical thickness is normal. No calculi or focal parenchymal lesions. No hydronephrosis. US/US renal BI IMPRESSION: Unremarkable sonographic appearance of bilateral kidneys.
== END 2024-01-16 12:37 | disposition home or self-care (01) ==
LOC: HO.US 12:36
PROVIDERS: PCP Internal Medicine Geriatric Medicine; Visit Provider Nurse Practitioner Primary Care
DX: R31.29 Other microscopic hematuria (principal)
CPT/HCPCS: 76775

== ENCOUNTER 2024-02-03 13:39 | Outpatient (REF) | payer MEDICARE, MEDICAID, SELFPAY ==
--- NOTE | ~2024-02-03 | MM_ITS ---
EXAMINATION: MM SCREENING DIGITAL BREAST TOMOSYNTHESIS, BILATERAL CLINICAL INFORMATION: Screening. Asymptomatic. COMPARISON: Mammography: This study is compared with prior exams dating back to 2017. TECHNIQUE: Digital breast tomosynthesis is performed in both the craniocaudal and mediolateral oblique views along with computer-aided detection (CAD). Synthesized 2D images are generated from the tomosynthesis. FINDINGS: There are scattered areas of fibroglandular density (ACR BI-RADS breast composition Category b). Few, grouped calcifications in the upper inner quadrant of the right breast at a middle depth. These warrant additional imaging with magnification. The left breast, there are no significant masses, abnormal calcifications, or other abnormalities. MM/MM tomosynthesis screening BI IMPRESSION: Grouped calcifications of the right breast warrant additional mammographic imaging with magnification. No mammographic signs of malignancy left breast breast. ASSESSMENT: BI-RADS BI-RADS 0 - Incomplete: Needs additional Imaging. RECOMMENDATION: 1. Additional views of the right breast. 2. Targeted ultrasound if warranted after review of the additional views. 3. Radiology department staff will contact the patient for additional imaging. Additional Imaging required This examination should not preclude the clinical evaluation of a suspicious palpable abnormality. This patient's information was entered into a reminder system with a target due date for their next mammogram.
--- NOTE | ~2024-02-03 | MM_ITS ---
EXAMINATION: BONE DENSITOMETRY CLINICAL INDICATION: Menopausal and perimenopausal. COMPARISON: This is the patient's baseline examination. TECHNIQUE: Using a [employer] DXA System (software version: 13.1) manufactured by [employer], dual-energy x-ray absorptiometry was performed of the lumbar spine and left hip. The images are of good technical quality. Summary results are attached. FINDINGS: LEFT FEMUR, NECK: BMD 1.043 g/cm2, Z-score 0.8, T-score 0.0, normal. LEFT FEMUR, TOTAL: BMD 1.198 g/cm2, Z-score 1.9, T-score 1.5, normal. AP SPINE L1-L4 (excluding L3): The data of L1-L4 has been changed to exclude the L3 vertebral body, because degenerative sclerosis at this level may cause overestimation of lumbar spine density. BMD 1.794 g/cm2, Z-score 5.6, T-score 5.2, normal. IDENTIFIED RISK FACTORS: Early menopause, secondary osteoporosis, osteoporosis. HISTORY OF FRACTURE: None listed. MEDICATIONS: Vitamin D. MM/XR DEXA axial skeleton IMPRESSION: 1. DIAGNOSIS: Normal bone density based on the lowest T-score value of 0.0 in the femoral neck applying World Health Organization criteria. 2. 10-YEAR FRACTURE RISK PREDICTION, FRAX: According to the guidelines, FRAX calculation should only be performed on patients in the osteopenia bone density category. Therefore, FRAX was not performed on this patient. 3. Treatment Recommendations: NOF guidelines recommend consideration for treatment in postmenopausal women and men age 50 and older presenting with the following: -A hip or vertebral (clinical or morphometric) fracture. -T-score less than or equal to -2.5 at the femoral neck or spine after appropriate evaluation to exclude secondary causes. -Low bone mass at the hip or spine and a 10-year fracture probability by FRAX of greater than or equal to 3% for hip fracture or greater than or equal to 20% for major osteoporotic fracture based on the [place] adapted WHO algorithm. 4. Other Recommendations: All treatment decisions require clinical judgment and consideration of individual patient factors, including patient preferences, comorbidities, previous drug use, risk factors not captured in the FRAX model (e.g. frailty, falls, vitamin D deficiency, increased bone turnover, interval significant decline in bone density) and possible under or overestimation of fracture risk by FRAX. FUTURE SCAN RECOMMENDATION: People with diagnosed cases of osteoporosis or at high risk for fracture should have regular bone mineral density tests. For patients eligible for Medicare, routine testing is allowed once every 2 years. The testing frequency can be increased to one year for patients who have rapidly progressing disease, those who are receiving or discontinuing medical therapy to restore bone mass, or have additional risk factors.
== END 2024-02-03 13:40 | disposition home or self-care (01) ==
LOC: HO.MAMMO 13:39
PROVIDERS: PCP Nurse Practitioner Primary Care; Visit Provider Advanced Practice Midwife
DX: Z12.31 Encounter for screening mammogram for malignant neoplasm of breast (principal); Z13.820 Encounter for screening for osteoporosis; Z78.0 Asymptomatic menopausal state; Z80.3 Family history of malignant neoplasm of breast
CPT/HCPCS: 77063; 77067; 77080

== ENCOUNTER → 2024-02-03 14:15 | Outpatient (BNV) | payer MEDICARE, MEDICAID, SELFPAY | PROVIDERS: PCP Nurse Practitioner Primary Care; Visit Provider Radiology Diagnostic Radiology | DX: Z12.31 Encounter for screening mammogram for malignant neoplasm of breast (principal) | CPT/HCPCS: 77063; 77067 ==

== ENCOUNTER → 2024-04-08 14:39 | Outpatient (RCR) | payer MEDICAID, SELFPAY ==
[2021-02-07 14:28] VITALS: BP 175/106; PULSE 93; RESP 14; TEMP 36.8; O2SAT 97; BMI 40.9
--- NOTE | 2021-02-07 15:05 | P.CNHO_ITS ---
Subjective - Subjective Chief complaint: left sided skull lesion Patient: new to practice Consult date: 02/07/21 Primary Care Provider: Juli Rizvi NP HPI - Consult Narrative Reason for consult: headaches and left skull asymmetry Narrative: Nataliya Cooper is a 65 year old female referred for evaluation of swelling over the left mastoid area of the skull. Patient states that this developed in the last 2 months and is associated with headaches in the morning and some photophobia. Her hearing is not impaired and she reports no tinnitus. She fee ls her left eye is slightly protuberant. She has a history of thyroid cancer for which she underwent total thyroidectomy at [facility]. She also received radioiodine therapy. She denies any nausea or emesis. No difficulty swallowing or change in voice. No loss of appetite or weight loss. Review of Systems - Constitutional Reports as per HPI, Reports headache(s), Denies malaise, Denies night sweats, Denies poor appetite, Denies weight loss - Eyes Denies blind spots, Denies blurry vision, Reports bulging eyes, Denies change in vision - ENT Reports no additional ear, nose, mouth, and throat complaints - Cardiovascular Reports no additional cardiovascular complaints - Respiratory Reports no additional respiratory complaints - Gastrointestinal Reports change in stools Oncology Screenings - ECOG Performance Status ECOG Performance Status: 1 [facility] Medical History: Medical History (Last Updated 02/07/21 @ 14:33 by Michellegian Noble) Hx of thyroid cancer Hypertension Left knee pain Osteoarthritis of left knee Prediabetes Family History: Family History (Last Updated 02/07/21 @ 14:41 by Michellegian Noble) Mother Leukemia Diabetes Heart attack Father Esophageal adenocarcinoma Sister Breast cancer Brother Bone cancer Esophageal adenocarcinoma Family/Other Ovarian cancer Brother Prostate cancer Paternal Grandmother Melanoma Surgical History: Surgical History (Last Updated 02/07/21 @ 14:33 by Michelleluke Noble) History of back surgery History of thyroidectomy Social History: Social History (Last Updated 02/07/21 @ 14:41 by Michelle Noble) Alcohol History: Alcohol intake: current Alcohol History Details: Alcohol intake frequency: holiday/special occasion Tobacco History: Patient Tobacco Use Status: Never used Tobacco Substance Use History: Use of substances other than those prescribed or required for medical reasons : No Home Medications and Allergies Home Medications Medication Instructions Recorded Confirmed Type amlodipine 5 mg tablet 5 mg PO DAILY 05/18/20 02/07/21 History atorvastatin 20 mg tablet 40 mg PO DAILY 05/18/20 02/07/21 History bupropion HCl 150 mg 24 hr tablet, 150 mg PO QAM 05/18/20 02/07/21 History extended release cholecalciferol (vitamin D3) 50 50 mcg PO DAILY 05/18/20 02/07/21 History mcg (2,000 unit) chewable tablet citalopram 10 mg tablet 10 mg PO DAILY 05/18/20 02/07/21 History docusate sodium 100 mg capsule 100 mg PO DAILY 05/18/20 02/07/21 History levothyroxine 137 mcg tablet 137 mcg PO DAILY 05/18/20 02/07/21 History lisinopril 20 mg tablet 20 mg PO DAILY 05/18/20 02/07/21 History lorazepam 1 mg tablet 1 mg PO DAILY PRN 05/18/20 02/07/21 History sennosides 8.6 mg tablet 8.6 mg PO DAILY 05/18/20 02/07/21 History tizanidine 4 mg capsule 4 mg PO BEDTIME 05/18/20 02/07/21 History trazodone 100 mg tablet 100 mg PO BID 05/18/20 02/07/21 History metformin 1 tab PO QPM 02/07/21 02/07/21 History tramadol 1 tab PO Q8H PRN 02/07/21 02/07/21 History Allergies Allergy/AdvReac Type Severity Reaction Status Date / Time No Known Allergies Allergy Mild NONE Verified 05/18/20 13:14 Physical Exam Vital signs: Vital Signs Temp 98.2 F 02/07/21 14:28 Pulse 93 02/07/21 14:28 Resp 14 02/07/21 14:28 BP 175/106 H 02/07/21 14:28 Pulse Ox 97 02/07/21 14:28 Intake & Output 02/06/21 02/07/21 02/07/21 18:59 06:59 18:59 Other: Weight 111.7 kg Weight in Grams [id number] Weight 111.7 kg - Constitutional Present: no acute distress - Routine HEENT Exam Head: Present: atraumatic, normal inspection Eye: Present: EOMI. Absent: periorbital swelling, proptosis Comments: Protuberance of the left mastoid skull. No lymphadenopathy. - Routine Neck Exam Present: supple. Absent: lymphadenopathy - Routine Respiratory Exam Present: CTAB - Routine Cardiovascular Exam Cardiovascular: Present: RRR, S1, S2 Assessment and Plan (1) Skull anomaly Status: Acute 1. This is a 65-year-old woman with history of thyroid cancer, status post thyroidectomy in 2012 presenting with left skull asymmetric swelling. she has noticed this for 2 months. She says it is painful and causing her to have headaches. She had CT scan of auditory canals which revealed nonspecific changes in the greater sphenoid wings and periauricular lymph nodes. No pathological enlargement of lymph nodes on physical examination or on this current scan. As per records, she has a history of papillary thyroid cancer which usually has a very good prognosis. I doubt this is metastatic lesion from her thyroid cancer. Possibilities such as plasmacytoma or metastatic bony lesion should still be considered. I am ordering x-ray of the skull bones and CT brain/ head with and without contrast. Her recent blood work in January was normal. 2. Family history of cancers. Multiple family members with breast / ovarian and prostate cancer raising possibility of Hereditary cancer syndromes. She was counseled about this. Both she and her daughter interested in genetic counseling and testing for inherited cancer syndromes if possible. This will be arranged, she was also informed that test will be performed pending insurance approval. Follow-up in 6 weeks.
--- NOTE | 2021-02-07 16:10 | MHC.HEMONCMA ---
Patient came in for a consult for history of thyroid cancer, and a new lump behind her left ear. Her daughter and her are very concerned about this given her family history of cancer. Clinical summary was reviewed and updated. Patient had her blood drawn for the genetic testing and will return in 2 months for a follow up.
== END | disposition home or self-care (01) ==
LOC: HO.ONC 02-07 14:19
PROVIDERS: PCP Nurse Practitioner Primary Care; Referring Provider Nurse Practitioner Primary Care; Visit Provider Internal Medicine
DX: R22.0 Localized swelling, mass and lump, head (principal); R51.9 Headache, unspecified; Z85.850 Personal history of malignant neoplasm of thyroid
CPT/HCPCS: 99204